=== PATIENT | female | born 1975 | race Caucasian/White ===

== ENCOUNTER 2022-01-31 19:53 | Emergency (ER) | payer BC ==
--- OUTSIDE RECORDS SUMMARY | 2022-01-31 20:01 | XMS REPORT | Continuity of Care Document ---
:1975 Author Organization [facility] t Address [address] [place] [address] Care Team Providers Name Role Phone Tammy Ochoa Primary Care Physician Tammy Ochoa Attending Clinician Unavailable JONATAN MYERS Attending Clinician Unavailable Jonatan Myers MD Attending Clinician ALONDRA WRIGHT Attending Clinician Unavailable Melvin Norris MD Attending Clinician Alondra Wright MD Attending Clinician Shannan Ramirez Attending Clinician SHANNAN GRANADOS Attending Clinician Unavailable CHILO FORBES Attending Clinician Unavailable KARLEY BELTRAN Attending Clinician Unavailable DR YAYO HAWK Attending Clinician Unavailable CHILO FORBES Admitting Clinician Unavailable DR YAYO HAWK Admitting Clinician Unavailable Payers Payer Name Policy Type Policy Number Effective Date Expiration Date S jazzmine BCBS FED [id number] 2011 [employer] 00:00:00 [employer] 6 [id number] 2011 [facility] Blue Shield of 00:00:00 [facility] Problems Condition Condition Condition Status Onset Resolution Last Treating Co mments Source Name Details Category Date Date Treatment Clinician Date Thyromegal Thyromegal Disease Active U nivers y y 6-19 ity of 00:00: [place] 00 Medical Branch Abnormal Abnormal Disease Active Unive rs thyroid thyroid 09-21 [place]y of blood [place] [facility] [place] [id number] Body mass Problem Com mon index [facility] [BMI] - [facility] 40.0-44.9, [facility] [id number] Morbid Problem Commo n 9104 (severe) Spirit obesity - [facility] due to [facility] [id number] Encounter Problem Com mon for [facility] gynecologi - [facility] without abnormal findings [id number] Cigarette Problem Comm on nicotine [facility] dependence - [facility] [id number] Reactive Problem Commo n depression [facility] [id number] Herpes Problem Common simplex [facility] vulvovagin - [facility] itis [facility] [id number] Seasonal Problem Comm on allergies [facility] [id number] Essential Problem Comm on hypertensi Spirit on [facility] [id number] Thyroid Problem Commo n nodule [facility] [id number] PMDD Problem Common (premenstr Spirit ual - [facility] [id number] Gastroesop Problem Co mmon hageal Spirit reflux - [facility] disease [facility] esophagiti [facility] [id number] Hot Problem Common flushes, Spirit perimenopa - [facility] [id number] Perimenopa Problem C ommon [id number] [facility] Allergies, Adverse Reactions, Alerts Allergy Allergy Status Severity Reaction(s) Onset Inactive Treating Comm ents Source Name Type Date Date Clinician PENICILL Drug Active Anaphylaxis Uni vers INS Class 6-19 ity of 00:00: Medical Branch Penicill Propensi Active Hives Univer s ins ty to 6-19 ity of adverse 00:00: [place] reaction Medical Branch Penicill Propensi Active Hives Univer s ins ty to 6-19 ity of adverse 00:00: [place] reaction Medical s [place] 0 Drug Active cant breath Commo n allergy throat Spirit closes and - [facility] Penicill DA Active Unknown Anaphylaxis Oa kbend [facility] Social History Social Habit Start Date Stop Date Quantity Comments Source History of Current Smoker [facility] - Tobacco Use [facility] Sex Assigned At [facility] - [facility] Exposure to 2022-01-20 2022-01-30 Not sure University of SARS-CoV-2 00:00:00 22:41:00 [facility] (event) Branch Tobacco use and 2021-04-04 2021-04-04 Smokeless tobacco Un iversity of exposure 00:00:00 00:00:00 non-user [facility] Alcohol intake 2021-04-04 2021-04-04 Current drinker Unive rsity of 00:00:00 00:00:00 of alcohol [facility] (finding) Branch Smoking Status Start Date Stop Date Source Current Smoker 2022-01-05 00:00:00 [facility] Spiri t - [facility] Medications Ordered Filled Start Stop Current Ordering Indication Dosage Frequency Signature Comments Components Source Medication Medication Date Date Medication? Clinician (SIG) Name Name cloNIDine 2021-04- No .2mg 0.2 mg, Univ ers (CATAPRES) 01-31 Oral, ity of tablet 0.2 04:45: 04:47 ONCE, 1 Bryce as mg 00 :00 dose, On Medical Fri Branch 01/30/22 at 2345, STAT valACYclovi valACYclovi No 1{table QD valACYclov r HCl 1 GM r HCl 1 GM 1-17 t} ir HCl 1 00:00: GM 00 doxycycline 2020-04- No [id number] 100mg Take 1 Univers hyclate 100 04-12 tablet by it y of mg tablet 00:00: 05:59 [place] 2 [place] (two) Medical times Branch daily for 7 days. metoprolol 2020-04 Yes 100mg Take 100 Un kim tartrate 2-20 mg by ity of 100 mg 00:00: mouth 2 [place] tablet 00 (two) Medical times Branch daily with meals. metoprolol 2020-04 Yes 100mg Take 100 Un kim tartrate 2-20 mg by ity of 100 mg 00:00: mouth 2 [place] tablet 00 (two) Medical times Branch daily with meals. metoprolol 2020-04 Yes 100mg Take 100 Un kim tartrate 2-20 mg by ity of 100 mg 00:00: mouth 2 [place] tablet 00 (two) Medical times Branch daily with meals. valsartan-h 2020-04 Yes 1{tbl} Take 1 Un kim ydrochlorot 1-19 tablet by ity of hiazide 00:00: mouth [place] 320-25 mg 00 daily. Medical per tablet Branch valsartan-h 2020-04 Yes 1{tbl} Take 1 Un kim ydrochlorot 1-19 tablet by ity of hiazide 00:00: mouth [place] 320-25 mg 00 daily. Medical per tablet Branch valsartan-h 2020-04 Yes 1{tbl} Take 1 Un kim ydrochlorot 1-19 tablet by ity of hiazide 00:00: mouth [place] 320-25 mg 00 daily. Medical per tablet Branch Omeprazole Omeprazole No QD Omeprazole 40 MG 40 MG 3-22 40 MG 00:00: 00 Omeprazole Omeprazole 0 No QD Omeprazole 40 MG 40 MG 3-22 40 MG 00:00: 00 Omeprazole Omeprazole 0 No QD Omeprazole 40 MG 40 MG 3-22 40 MG 00:00: 00 Valtrex Valtrex 2020-0 2020- No Minna 1 tablet Common 5-18 05-28 [place] [facility] 00:00: 00:00 - [facility] 00 :00 [facility] Zestoretic Zestoretic 2017- Yes Minna 1 tablet Common 1-08 [facility] 00:00: - [facility] 00 [facility] Metoprolol Metoprolol Yes Minna 1 tablet Common Tartrate Tartrate [place] with food S pirit [facility] Vitamin E Vitamin E Yes Minna 1 capsule Common [facility] Vitamin B Vitamin B Yes Minna as Com mon Complex Complex Cruz directed Spir it [facility] Vitamin C Vitamin C Yes Minna as Com mon [place] directed [facility] Vitamin E Vitamin E No 1{capsu QD Vitamin E 1000 UNIT 1000 UNIT le} 1000 UNIT Valsartan-h Valsartan-h No 1{table QD Valsartan- ydroCHLOROt ydroCHLOROt t} hydroCHLOR hiazide hiazide Othiazide 320-25 MG 320-25 MG 320-25 MG Vitamin B Vitamin B No Vitamin B Complex - Complex - Complex - Metoprolol Metoprolol No 1{table BID Metoprolol Tartrate Tartrate t_with_ Tartrate 100 MG 100 MG food} 100 MG Omeprazole Omeprazole No QD Omeprazole 40 MG 40 MG 40 MG Vitamin E Vitamin E No 1{capsu QD Vitamin E 1000 UNIT 1000 UNIT le} 1000 UNIT Zinc 30 MG Zinc 30 MG No 1{table QD Zinc 30 MG t} valACYclovi valACYclovi No 1{table QD valACYclov r HCl 1 GM r HCl 1 GM t} ir HCl 1 GM Vitamin D3 Vitamin D3 No 2{capsu QD Vitamin D3 50 MCG 50 MCG les} 50 MCG (1999) (1999) (1999) Vitamin C Vitamin C No Vitamin C 500 MG 500 MG 500 MG Omeprazole Omeprazole No QD Omeprazole 40 MG 40 MG 40 MG valACYclovi valACYclovi No 1{table QD valACYclov r HCl 1 GM r HCl 1 GM t} ir HCl 1 GM Vitamin E Vitamin E No 1{capsu QD Vitamin E 1000 UNIT 1000 UNIT le} 1000 UNIT Vitamin B Vitamin B No Vitamin B Complex - Complex - Complex - Zinc 30 MG Zinc 30 MG No 1{table QD Zinc 30 MG t} Valsartan-h Valsartan-h No 1{table QD Valsartan- ydroCHLOROt ydroCHLOROt t} hydroCHLOR hiazide hiazide Othiazide 320-25 MG 320-25 MG 320-25 MG Metoprolol Metoprolol No Metoprolol Tartrate Tartrate Tartrate 100 MG 100 MG 100 MG Vitamin C Vitamin C No Vitamin C 500 MG 500 MG 500 MG Vitamin D3 Vitamin D3 No 2{capsu QD Vitamin D3 50 MCG 50 MCG les} 50 MCG (1999) (1999) (1999) Vitamin C Vitamin C No Vitamin C 500 MG 500 MG 500 MG Vitamin E Vitamin E No 1{capsu QD Vitamin E 1000 UNIT 1000 UNIT le} 1000 UNIT Valsartan-h Valsartan-h No 1{table QD Valsartan- ydroCHLOROt ydroCHLOROt t} hydroCHLOR hiazide hiazide Othiazide 320-25 MG 320-25 MG 320-25 MG Metoprolol Metoprolol No Metoprolol Tartrate Tartrate Tartrate 100 MG 100 MG 100 MG Zinc 30 MG Zinc 30 MG No 1{table QD Zinc 30 MG t} Vitamin B Vitamin B No Vitamin B Complex - Complex - Complex - Omeprazole Omeprazole No QD Omeprazole 40 MG 40 MG 40 MG valACYclovi valACYclovi No 1{table QD valACYclov r HCl 1 GM r HCl 1 GM t} ir HCl 1 GM Vitamin D3 Vitamin D3 No 2{capsu QD Vitamin D3 50 MCG 50 MCG les} 50 MCG (1999) (1999) (1999) Vitamin C Vitamin C No Vitamin C 500 MG 500 MG 500 MG Vitamin E Vitamin E No 1{capsu QD Vitamin E 1000 UNIT 1000 UNIT le} 1000 UNIT Metoprolol Metoprolol No 1{table BID Metoprolol Tartrate Tartrate t_with_ Tartrate 100 MG 100 MG food} 100 MG Valsartan-h Valsartan-h No Valsartan- ydroCHLOROt ydroCHLOROt hydroCHLOR hiazide hiazide Othiazide 320-25 MG 320-25 MG 320-25 MG Zinc 30 MG Zinc 30 MG No 1{table QD Zinc 30 MG t} Vitamin B Vitamin B No Vitamin B Complex - Complex - Complex - Omeprazole Omeprazole No QD Omeprazole 40 MG 40 MG 40 MG valACYclovi valACYclovi No 1{table QD valACYclov r HCl 1 GM r HCl 1 GM t} ir HCl 1 GM Vitamin D3 Vitamin D3 No 2{capsu QD Vitamin D3 50 MCG 50 MCG les} 50 MCG (1999) (1999) (1999) Vitamin E Vitamin E No 1{capsu QD Vitamin E 1000 UNIT 1000 UNIT le} 1000 UNIT Omeprazole Omeprazole No QD Omeprazole 40 MG 40 MG 40 MG valACYclovi valACYclovi No 1{table QD valACYclov r HCl 1 GM r HCl 1 GM t} ir HCl 1 GM Valsartan-h Valsartan-h No Valsartan- ydroCHLOROt ydroCHLOROt hydroCHLOR hiazide hiazide Othiazide 320-25 MG 320-25 MG 320-25 MG Vitamin C Vitamin C No Vitamin C 500 MG 500 MG 500 MG Zinc 30 MG Zinc 30 MG No 1{table QD Zinc 30 MG t} Vitamin D3 Vitamin D3 No 2{capsu QD Vitamin D3 50 MCG 50 MCG les} 50 MCG (1999) (1999) (1999) Metoprolol Metoprolol No 1{table BID Metoprolol Tartrate Tartrate t_with_ Tartrate 100 MG 100 MG food} 100 MG Vitamin B Vitamin B No Vitamin B Complex - Complex - Complex - Vitamin C Vitamin C No Vitamin C 500 MG 500 MG 500 MG Vitamin E Vitamin E No 1{capsu QD Vitamin E 1000 UNIT 1000 UNIT le} 1000 UNIT Metoprolol Metoprolol No 1{table BID Metoprolol Tartrate Tartrate t_with_ Tartrate 100 MG 100 MG food} 100 MG Valsartan-h Valsartan-h No Valsartan- ydroCHLOROt ydroCHLOROt hydroCHLOR hiazide hiazide Othiazide 320-25 MG 320-25 MG 320-25 MG Zinc 30 MG Zinc 30 MG No 1{table QD Zinc 30 MG t} Vitamin B Vitamin B No Vitamin B Complex - Complex - Complex - Omeprazole Omeprazole No QD Omeprazole 40 MG 40 MG 40 MG valACYclovi valACYclovi No 1{table QD valACYclov r HCl 1 GM r HCl 1 GM t} ir HCl 1 GM Vitamin D3 Vitamin D3 No 2{capsu QD Vitamin D3 50 MCG 50 MCG les} 50 MCG (1999) (1999) (1999 [place]) Zinc 30 MG Zinc 30 MG No 1{table QD Zinc 30 MG t} Vitamin E Vitamin E No 1{capsu QD Vitamin E 1000 UNIT 1000 UNIT le} 1000 UNIT Vitamin C Vitamin C No Vitamin C 500 MG 500 MG 500 MG Vitamin D3 Vitamin D3 No 2{capsu QD Vitamin D3 50 MCG 50 MCG les} 50 MCG (1999) (1999) (1999 [place]) Metoprolol Metoprolol No 1{table BID Metoprolol Tartrate Tartrate t_with_ Tartrate 100 MG 100 MG food} 100 MG Valsartan-h Valsartan-h No 1{table QD Valsartan- ydroCHLOROt ydroCHLOROt t} hydroCHLOR hiazide hiazide Othiazide 320-25 MG 320-25 MG 320-25 MG Vitamin B Vitamin B No Vitamin B Complex - Complex - Complex - Zinc 30 MG Zinc 30 MG No 1{table QD Zinc 30 MG t} Valsartan-h Valsartan-h No 1{table QD Valsartan- ydroCHLOROt ydroCHLOROt t} hydroCHLOR hiazide hiazide Othiazide 320-25 MG 320-25 MG 320-25 MG Vitamin D3 Vitamin D3 No 2{capsu QD Vitamin D3 50 MCG 50 MCG les} 50 MCG (1999) (1999) (1999) Vitamin C Vitamin C No Vitamin C 500 MG 500 MG 500 MG Metoprolol Metoprolol No 1{table BID Metoprolol Tartrate Tartrate t_with_ Tartrate 100 MG 100 MG food} 100 MG Vitamin E Vitamin E No 1{capsu QD Vitamin E 1000 UNIT 1000 UNIT le} 1000 UNIT Vitamin B Vitamin B No Vitamin B Complex - Complex - Complex - Zinc 30 MG Zinc 30 MG No 1{table QD Zinc 30 MG t} Vitamin C Vitamin C No Vitamin C 500 MG 500 MG 500 MG Valsartan-h Valsartan-h No 1{table QD Valsartan- ydroCHLOROt ydroCHLOROt t} hydroCHLOR hiazide hiazide Othiazide 320-25 MG 320-25 MG 320-25 MG Vitamin D3 Vitamin D3 No 2{capsu QD Vitamin D3 50 MCG 50 MCG les} 50 MCG (1999) (1999) (1999) Vitamin B Vitamin B No Vitamin B Complex - Complex - Complex - Metoprolol Metoprolol No 1{table BID Metoprolol Tartrate Tartrate t_with_ Tartrate 100 MG 100 MG food} 100 MG Immunizations Ordered Immunization Filled Immunization Date Status Commen ts Source Name Name Fluzone Fluzone 2021-02-21 Completed [facility] 14:07:00 - [facility] Fluzone Fluzone 2021-02-21 Completed [facility] 14:07:00 [facility] Fluzone Fluzone 2021-02-21 Completed [facility] 14:07:00 [facility] Fluzone Fluzone 2021-02-21 Completed [facility] 14:07:00 [facility] Fluzone Fluzone 2021-02-21 Completed [facility] 14:07:00 - [facility] Fluzone Fluzone 2021-02-21 Completed [facility] 14:07:00 [facility] Fluzone Fluzone 2021-02-21 Completed [facility] 14:07:00 [facility] Moderna COVID-19 Moderna COVID-19 2020-12-05 Completed [facility] Vaccine Vaccine 10:24:00 - [facility] Moderna COVID-19 Moderna COVID-19 2020-12-05 Completed [facility] Vaccine Vaccine 10:24:00 - [facility] Moderna COVID-19 Moderna COVID-19 2020-12-05 Completed Co [facility] Vaccine Vaccine 10:24:00 - [facility] Moderna COVID-19 Moderna COVID-19 2020-12-05 Completed Co [facility] Vaccine Vaccine 10:24:00 - [facility] Moderna COVID-19 Moderna COVID-19 2020-12-05 Completed [facility] Vaccine Vaccine 10:24:00 - [facility] Moderna COVID-19 Moderna COVID-19 2020-12-05 Completed [facility] Vaccine Vaccine 10:24:00 - [facility] Moderna COVID-19 Moderna COVID-19 2020-12-05 Completed [facility] Vaccine Vaccine 10:24:00 - [facility] Moderna COVID-19 Moderna COVID-19 2020-12-05 Completed Co [facility] Vaccine Vaccine 10:24:00 - [facility] Moderna COVID-19 Moderna COVID-19 2020-12-05 Completed Co [facility] Vaccine Vaccine 10:24:00 - [facility] Moderna COVID-19 Moderna COVID-19 2020-11-07 Completed Co [facility] Vaccine Vaccine 10:23:00 - [facility] Moderna COVID-19 Moderna COVID-19 2020-11-07 Completed Co [facility] Vaccine Vaccine 10:23:00 - [facility] Moderna COVID-19 Moderna COVID-19 2020-11-07 Completed Co [facility] Vaccine Vaccine 10:23:00 - [facility] Moderna COVID-19 Moderna COVID-19 2020-11-07 Completed Co [facility] Vaccine Vaccine 10:23:00 - [facility] Moderna COVID-19 Moderna COVID-19 2020-11-07 Completed Co [facility] Vaccine Vaccine 10:23:00 - [facility] Moderna COVID-19 Moderna COVID-19 2020-11-07 Completed Co [facility] Vaccine Vaccine 10:23:00 - [facility] Moderna COVID-19 Moderna COVID-19 2020-11-07 Completed Co [facility] Vaccine Vaccine 10:23:00 - [facility] Moderna COVID-19 Moderna COVID-19 2020-11-07 Completed Co [facility] Vaccine Vaccine 10:23:00 - [facility] Moderna COVID-19 Moderna COVID-19 2020-11-07 Completed Co mmon [facility] Vaccine Vaccine 10:23:00 - [facility] Vital Signs Vital Name Observation Time Observation Value Comments Source Systolic blood 2022-01-31 05:12:00 142 mm[Hg] Univer sity of pressure [facility] Diastolic blood 2022-01-31 05:12:00 71 mm[Hg] Unive rsity of pressure [facility] Heart rate 2022-01-31 05:12:00 85 /min [facility] ty [facility] Respiratory rate 2022-01-31 05:12:00 21 /min [facility] Oxygen saturation in 2022-01-31 05:12:00 96 /min University of Arterial blood by [facility] Pulse oximetry Branch Body temperature 2022-01-31 03:44:00 36.72 Viviana [facility] [place] [facility] height 2022-01-31 03:44:00 170.2 cm [facility] Body weight 2022-01-31 03:44:00 128.822 kg [facility] BMI 2022-01-31 03:44:00 44.48 kg/m2 [facility] Systolic blood 2022-01-30 06:19:00 165 mm[Hg] Univer sity of pressure [facility] Branch Diastolic blood 2022-01-30 06:19:00 100 mm[Hg] Unive rsity of pressure [facility] Branch Oxygen saturation in 2022-01-30 05:57:00 98 /min University of Arterial blood by [facility] [place] [facility] Pulse oximetry Branch Heart rate 2022-01-30 05:57:00 89 /min [facility] Respiratory rate 2022-01-30 04:56:00 21 /min [facility] Body temperature 2022-01-30 03:55:00 37.11 Viviana Univ [facility] Body height 2022-01-30 03:55:00 170.2 cm [facility] Body weight 2022-01-30 03:55:00 128.822 kg [facility] BMI 2022-01-30 03:55:00 44.48 kg/m2 [facility] height 2022-01-05 11:20:00 69 [in_i] Common [facility] weight 2022-01-05 11:20:00 284 [lb_av] [facility] temperature 2022-01-05 11:20:00 97.3 [degF] [facility] bmi 2022-01-05 11:20:00 41.93 kg/m2 [facility] oximetry 2022-01-05 11:20:00 98 % [facility] respiratory rate 2022-01-05 11:20:00 18 /min Comm on [facility] blood pressure 2022-01-05 11:20:00 138 mm[Hg] [facility] - systolic [facility] blood pressure 2022-01-05 11:20:00 80 mm[Hg] Common [facility] - diastolic [facility] height 2021-11-28 11:20:00 69 [in_i] Common [facility] weight 2021-11-28 11:20:00 274 [lb_av] [facility] temperature 2021-11-28 11:20:00 98.7 [degF] Common [facility] bmi 2021-11-28 11:20:00 40.46 kg/m2 Common [facility] blood pressure 2021-11-28 11:20:00 131 mm[Hg] [facility] - systolic [facility] blood pressure 2021-11-28 11:20:00 73 mm[Hg] [facility] - diastolic [facility] height 2021-08-18 13:00:00 69 [in_i] Common [facility] weight 2021-08-18 13:00:00 274 [lb_av] Common [facility] temperature 2021-08-18 13:00:00 95.7 [degF] Common [facility] bmi 2021-08-18 13:00:00 40.46 kg/m2 Common [facility] oximetry 2021-08-18 13:00:00 99 % Common [facility] respiratory rate 2021-08-18 13:00:00 16 /min Comm on [facility] blood pressure 2021-08-18 13:00:00 128 mm[Hg] Common [facility] - systolic [facility] blood pressure 2021-08-18 13:00:00 82 mm[Hg] Common [facility] - diastolic [facility] height 2021-05-19 14:00:00 69 [in_i] Common [facility] weight 2021-05-19 14:00:00 278.2 [lb_av] [facility] temperature 2021-05-19 14:00:00 97.1 [degF] Common [facility] bmi 2021-05-19 14:00:00 41.08 kg/m2 [facility] oximetry 2021-05-19 14:00:00 100 % [facility] respiratory rate 2021-05-19 14:00:00 16 /min Comm on [facility] blood pressure 2021-05-19 14:00:00 134 mm[Hg] Common [facility] - systolic [facility] blood pressure 2021-05-19 14:00:00 86 mm[Hg] Common [facility] - diastolic [facility] Systolic blood 2021-04-04 21:54:00 134 mm[Hg] Univer sity of pressure [facility] Diastolic blood 2021-04-04 21:54:00 80 mm[Hg] Unive rsity of pressure [facility] Heart rate 2021-04-04 21:54:00 87 /min Universi ty of [facility] Body temperature 2021-04-04 21:54:00 37.06 Viviana [facility] ersity [facility] Respiratory rate 2021-04-04 21:54:00 18 /min [facility] height 2021-04-04 21:54:00 171.5 cm Universi ty of [facility] Body weight 2021-04-04 21:54:00 126.009 kg Universi ty of [facility] BMI 2021-04-04 21:54:00 42.87 kg/m2 Universi ty [facility] Oxygen saturation in 2021-04-04 21:54:00 97 /min [facility] Arterial blood by [facility] Pulse oximetry Branch height 2021-02-21 11:00:00 69 [in_i] [facility] weight 2021-02-21 11:00:00 280 [lb_av] [facility] bmi 2021-02-21 11:00:00 41.34 kg/m2 [facility] height 2021-01-23 14:20:00 69 [in_i] [facility] weight 2021-01-23 14:20:00 280.4 [lb_av] [facility] temperature 2021-01-23 14:20:00 97.1 [degF] [facility] bmi 2021-01-23 14:20:00 41.4 kg/m2 [facility] oximetry 2021-01-23 14:20:00 97 % [facility] respiratory rate 2021-01-23 14:20:00 18 /min Comm on [facility] blood pressure 2021-01-23 14:20:00 128 mm[Hg] [facility] [place] systolic [facility] blood pressure 2021-01-23 14:20:00 72 mm[Hg] Common [facility] - diastolic [facility] Height 2020-01-19 04:15:00 172.72 CM Weight 2020-01-19 04:15:00 122.01 KG Height 2020-01-18 08:23:00 172.72 CM Weight 2020-01-18 08:23:00 123.37 KG Procedures Procedure Date / Time Performed Performing Clinician Liam porter CONSENT/REFUSAL FOR 2022-01-31 03:38:01 [facility] TREATMENT TROPONIN I 2022-01-30 04:41:00 Melvin Norris [facility] BASIC METABOLIC PANEL 2022-01-30 04:41:00 Melvin Norris [facility] (NA, K, CL, CO2, Medical Branch GLUCOSE, BUN, CREATININE, CA) CBC WITH DIFF 2022-01-30 04:41:00 Melvin Norris [facility] CONSENT/REFUSAL FOR 2022-01-30 03:47:39 Doctor Unassigned, [facility] AND Name Medical Branch TREATMENT EXCISION OF TIBIAL 2020-01-19 00:00:00 Jatin Short edical NERVE OPEN APPR Center Encounters Start End Encounter Admission Attending Care Care Encounter Source Date/Time Date/Time Type Type Clinicians Facility Department ID 2022-01-02 Outpatient [place], STLMLC STLMLC [id number] Common 09:16:00 Tammy [facility] 2021-11-26 Outpatient [place], STLMLC STLMLC [id number] Common 08:19:00 Tammy [facility] 2021-08-15 Outpatient [place], STLMLC STLMLC [id number] Common 07:32:00 Tammy [facility] 2021-05-15 Outpatient [place], STLMLC STLMLC [id number] Common 13:41:01 Tammy [facility] 2021-04-30 Outpatient [place], STLMLC STLMLC [id number] Common 12:42:14 Tammy [id number] [facility] 2021-04-30 Outpatient [place], STLMLC STLMLC [id number] Common 11:50:15 Tammy [id number] [facility] 2021-04-30 Outpatient [place], STLMLC STLMLC [id number] Common 11:45:30 Tammy [id number] [facility] 2021-04-30 Outpatient Gabriela STJUSTINA STLC [id number] Common 11:12:26 Tammy [address] [facility] 2022-01-30 2022-01-31 Emergency X MIRNA [facility] ERT [id number] Univers 22:38:00 00:31:00 JONATAN ellsworth [facility] 2022-01-30 2022-01-31 Emergency [facility] [id number] Univers 22:38:00 00:31:00 Jonatan CASTELLANOS [id number] ity [facility] [id number] [facility] [phone] [address] 2022-01-29 2022-01-30 Emergency [facility] [id number] Univers 22:58:00 01:37:00 ALONDRA ellsworth [facility] 2022-01-29 2022-01-30 Emergency Myrna Bird [facility] [id number] Univers 22:58:00 01:37:00 Alondra Wright [id number] ity [facility] [id number] [facility] [phone] [address] 2022-01-05 2022-01-05 PREV VISIT STLMLC STLC [id number] Common 00:00:00 00:00:00 EST AGE [facility] 40-64 - [facility] 2021-12-29 2021-12-29 (TEL) STLMLC STLMLC [id number] Co mmon 00:00:00 00:00:00 [facility] 2021-11-28 2021-11-28 OFFICE STLMLC STLMLC [id number] Co mmon 00:00:00 00:00:00 VISIT Spirit ESTAB PT - CHI LEVEL 4 [facility] 2021-08-18 2021-08-18 OFFICE STLMLC STLMLC [id number] Co mmon 00:00:00 00:00:00 VISIT Spirit ESTAB PT - [facility]I LEVEL 4 [facility] 2021-05-19 2021-05-19 OFFICE STLMLC STLMLC [id number] Co mmon 00:00:00 00:00:00 VISIT Spirit ESTAB PT - [facility]I LEVEL 4 [facility] 2021-04-21 2021-04-21 (TEL) STLMLC STLMLC [id number] Co mmon 00:00:00 00:00:00 [facility] 2021-04-13 2021-04-13 Outpatient R [facility] [id number] Univers 09:15:00 09:15:00 [facility] 2021-04-04 2021-04-04 [facility] [id number] Univers 15:40:00 16:00:00 Care Shannan Shuoren [employer] [id number] it y of [place] [id number] Bryce as TSERING?BLEA [phone] [address] MEDICAL OFFICE BUILDING 2021-04-04 2021-04-04 Outpatient R DARWIN [facility] [id number] Univers 15:40:00 15:40:00 [facility] 2021-02-21 2021-02-21 OFFICE STLMLC STLMLC [id number] Co mmon 00:00:00 00:00:00 VISIT EST Spir it PT LEVEL 3 - [facility] 2021-01-23 2021-01-23 OFFICE STLMLC STLMLC [id number] Co mmon 00:00:00 00:00:00 VISIT EST Spir it PT LEVEL 3 - [facility] 2020-12-25 2020-12-25 Outpatient STLMLC STLMLC [id number] Common 00:00:00 00:00:00 [facility] 2020-08-13 2020-08-13 Emergency X LEIDY [facility] ERT [id number] Univers 19:49:00 22:03:00 CHILO [facility] 2020-06-24 2020-06-24 Outpatient STLMLC STLMLC [id number] Common 00:00:00 00:00:00 [facility] 2020-06-03 2020-06-03 Outpatient Joy BETLRAN [facility] [id number] Univers 11:40:00 11:40:00 KARLEY ellsworth [facility] 2020-05-24 2020-05-24 Outpatient Joy BELTRAN [facility] [id number] Univers 10:20:00 10:20:00 KARLEY ellsworth [facility] 2020-01-19 2020-01-19 Outpatient Kishore HAWK [facility] [id number] [place] 04:10:00 06:45:00 [facility] 2019-12-26 2019-12-26 Outpatient STLMLC STLMLC [id number] Common 00:00:00 00:00:00 [facility] 2019-08-21 2019-08-21 Outpatient [facility] [id number] Common 15:40:00 15:40:00 t [facility] [address] [facility] 2019-06-20 2019-06-20 Outpatient [facility] [id number] Common 08:20:00 08:20:00 t [facility] [address] [facility] 2019-06-05 2019-06-05 Outpatient [facility] [id number] Common 08:18:00 08:18:00 t [facility] [address] [facility] 2018-12-13 2018-12-13 Outpatient [facility] [id number] Common 08:20:00 08:20:00 t [facility] [address] [facility] 2018-09-26 2018-09-26 Outpatient [facility] [id number] Common 14:00:00 14:00:[address] [facility] 2018-09-15 2018-09-15 Outpatient [facility] [id number] Common 08:40:00 08:40:[address] [facility] 2018-06-09 2018-06-09 Out[facility] [id number] Common 09:30:00 09:30:[address] [facility] 2018-06-02 2018-06-02 Outpatient [facility] [id number] Common 14:37:00 14:37:00 t [facility] [address] [facility] 2018-05-05 2018-05-05 [facility] [id number] Common 09:30:00 09:30:00 t [facility] [address] [facility] 2018-04-06 2018-04-06 [facility]patient [facility] [id number] Common 10:09:00 10:09:00 t [facility] 2018-03-31 2018-03-31 Outpatient [facility] [id number] Common 11:30:00 11:30:00 t [facility] [address] [facility] 2018-01-13 2018-01-13 Outpatient Venkat [facility] [id number] Common 10:00:00 10:00:00 t [facility] [address] [facility] Results Test Description Test Time Test Comments Results Result Comments Source URINE MONOCLONALFB 2020-01-19 05:01:00 Test Item Value Reference Range Interpretation Comme nts PREG UR (test code = PGU) NEGATIVE NEGATIVE
[2022-01-31 20:52] LABS: Absolute Lymphocytes (CBC) 2.5 K/uL (0.7-4.9); Hematocrit 39.5 % (36.0-45.0); Lymphocytes % 20.8 % (15.3-44.8); MCV 94.9 fL (80-100); MPV 8.7 fL (7.6-11.3); RBC Red Blood Cell Count 4.16 M/uL (3.86-4.86)
[2022-01-31 20:56] LABS: Protime INR 1.05
[2022-01-31 21:12] LABS: ALT/SGPT 26 U/L (12-78); AST/SGOT 14 U/L (15-37); Albumin 3.6 g/dL (3.4-5.0); Alkaline Phosphatase 78 U/L (45-117); BUN Blood Urea Nitrogen 10 mg/dL (7-18); Bicarbonate 29 mmol/L (21-32); Bilirubin Total 0.3 mg/dL (0.2-1.0); Glomerular Filtration Rate 87 ml/min (=/>90); Glucose Level 106 mg/dL (74-106); Magnesium 1.8 mg/dL (1.8-2.4); NT PRO-BNP 342 pg/mL (<125); Potassium 3.8 mmol/L (3.5-5.1); Protein, Total 7.2 g/dL (6.4-8.2); Sodium Level 128 mmol/L (136-145); Troponin High Sensitivity 5.3 pg/mL (<58.9)
--- NOTE | 2022-01-31 21:13 | RAD REPORT ---
EXAM DESCRIPTION: RAD - Chest Single View - 01/31/2022 8:33 pm CLINICAL HISTORY: CHEST PAIN COMPARISON: None TECHNIQUE: AP portable chest image was obtained 01/31/2022 8:33 pm . FINDINGS: Lungs are clear. Heart and vasculature are normal. No measurable pleural effusion and no p neumothorax. No acute bony abnormality seen. No acute aortic findings suspected. IMPRESSION: No acute cardiopulmonary process.
[2022-01-31 21:19] LABS: Bilirubin Direct < 0.1 mg/dL (0-0.2)
[2022-01-31 21:20] LABS: Urine Blood Negative (Negative); Urine Glucose Negative (Negative); Urine Protein Negative (Negative); Urine Specific Gravity <=1.005 (1.005-1.030); Urine pH 5.5 (5.0-7.0)
[2022-01-31] MEDS ORDERED: ASPIRIN 81 MG CHEWABLE TABLET ONE (22:29)
[2022-01-31] MEDS ORDERED: AMLODIPINE 10 MG TAB ONE (22:29)
--- NOTE | 2022-01-31 22:29 | RAD REPORT ---
EXAM DESCRIPTION: CT - Head Brain Wo Cont - 01/31/2022 10:11 pm CLINICAL HISTORY: elevated blood pressure, headache COMPARISON: No comparisons TECHNIQUE: Axial 5 mm thick images of the head were obtained without IV contrast. All CT scans are performed using dose optimization technique as appropriate and may include automated exposure control or mA/KV adjustment according to patient size. FINDINGS: No intracranial hemorrhage, mass, edema or shift of mid-line structures. No acute infarcti on changes seen. No abnormal extra-axial fluid collections. Ventricles are normal. Mastoid air cells and visualized portions of the paranasal sinuses are clear. No acute bony findings. IMPRESSION: Negative non-contrast CT head examination.
--- NOTE | 2022-02-01 00:59 | ER ---
Nurse's Notes [facility] Name: Pearl Reyna Age: 46 yrs Sex: Female : 1975 Arrival Date: 01/31/2022 Time: 19:55 Bed 11 Private MD: Tammy Ochoa Diagnosis: Hypertensive heart disease without heart failure;Chest pain, unspecified Presentation: 01/31 20:06 Chief complaint: Intermittent chest pain x 3 days, pain is worse after eating dinner. hb Also reports home BP 200/120. Coronavirus screen: At this time, the client does not indicate any symptoms associated with coronavirus-19. Ebola Screen: No symptoms or risks identified at this time. Initial Sepsis Screen: Does the patient meet any 2 criteria? No. Patient's initial sepsis screen is negative. Does the patient have a suspected source of infection? No. Patient's initial sepsis screen is negative. Risk Assessment: Do you want to hurt yourself or someone else? Patient reports no desire to harm self or others. Onset of symptoms was January 29, 2022. 20:06 Acuity: MARTINA 3 hb 20:06 Method Of Arrival: Ambulatory hb Triage Assessment: 20:07 General: Appears in no apparent distress. uncomfortable, Behavior is calm, cooperative. hb Pain: Pain currently is 2 out of 10 on a pain scale. at worst was 8 out of 10 on a pain scale. Neuro: Level of Consciousness is awake, alert, obeys commands, Oriented to person, place, time, situation. Cardiovascular: Reports chest pain, Patient's skin is warm and dry. Respiratory: Respiratory effort is even, unlabored, Respiratory pattern is regular, symmetrical. Historical: - Allergies: 20:08 No Known Allergies; hb - Home Meds: 20:08 Metoprolol Tartrate Oral [Active]; lisinopril-hydrochlorothiazide oral [Active]; hb - PMHx: 20:08 Hypertensive disorder; hb - Immunization history:: Adult Immunizations up to date. - Social history:: Smoking status: Patient reports the use of cigarette tobacco products, smokes one pack cigarettes per day. Screenin:41 Abuse screen: Denies threats or abuse. Denies injuries from another. Nutritional hb screening: No deficits noted. Tuberculosis screening: No symptoms or risk factors identified. Fall Risk None identified. Assessment: 20:30 General: SEE TRIAGE ASSESSMENT. hb 21:41 Reassessment: Patient appears in no apparent distress at this time. Patient and/or hb family updated on plan of care and expected duration. Pain level reassessed. Patient is alert, oriented x 3, equal unlabored respirations, skin warm/dry/pink. 22:33 Reassessment: Patient appears in no apparent distress at this time. Patient and/or hb family updated on plan of care and expected duration. Pain level reassessed. Patient is alert, oriented x 3, equal unlabored respirations, skin warm/dry/pink. 23:36 Reassessment: Patient appears in no apparent distress at this time. Patient and/or hb family updated on plan of care and expected duration. Pain level reassessed. Patient is alert, oriented x 3, equal unlabored respirations, skin warm/dry/pink. Vital Signs: 20:06 BP 159 / 94; Pulse 71; Resp 20; Temp 97.0; Pulse Ox 100% on R/A; Weight 128.82 kg; hb Height 5 ft. 7 in. (170.18 cm); Pain 2/10; 22:33 BP 156 / 81; Pulse 74; Resp 17; Pulse Ox 99% on R/A; hb 23:39 BP 141 / 75; Pulse 73; Resp 17; Pulse Ox 100% ; hb 20:06 Body Mass Index 44.48 (128.82 kg, 170.18 cm) hb ED Course: 19:55 Patient arrived in ED. am2 19:55 Tammy Ochoa FNP-C is Private Physician. am2 20:00 [facility] cp 20:00 Beata Cabrera MD is Attending Physician. cp 20:08 Triage completed. hb 20:08 Arm band placed on. hb 20:30 Patient has correct armband on for positive identification. Client placed on continuous hb cardiac and pulse oximetry monitoring. NIBP monitoring applied. 20:30 Patient maintains SpO2 saturation greater than 95% on room air. hb 20:35 XRAY Chest (1 view) In Process Unspecified. EDMS 20:41 Inserted saline lock: 20 gauge in right antecubital area, using aseptic technique. kr3 Blood collected. 20:47 Heather Graham RN is Primary Nurse. kr3 21:15 Basic Metabolic Panel Sent. hb 21:15 CBC with Diff Sent. hb 21:15 Troponin HS Sent. hb 22:12 CT Head Brain wo Cont In Process Unspecified. EDMS 02/01 00:04 Diet: Patient is NPO. mm9 00:04 Troponin HS Sent. mm9 00:56 US Abdomen Limited In Process Unspecified. EDMS 00:58 Bridger Russo MD is Referral Physician. cp Administered Medications: 01/31 22:33 Drug: Aspirin Chewable Tablet 324 mg Route: PO; hb 23:52 Follow up: Response: No adverse reaction hb 22:33 Drug: amLODIPine 10 mg Route: PO; hb 23:52 Follow up: Response: No adverse reaction hb Medication: 21:42 VIS not applicable for this client. hb Outcome: 02/01 00:59 Discharge ordered by MD. cp 01:15 Patient left the ED. cg Signatures: Dispatcher [employer] EDMS Matthew Restrepo PA PA cp Tita Soto RN RN Aniyah Camacho RN RN hb Fe Savage am2 Heather Graham RN RN kr3 Faye Cabrera mm9 Corrections: (The following items were deleted from the chart) 01/31 21:41 21:40 General: SEE TRIAGE ASSESSMENT. hb hb
--- NOTE | 2022-02-01 01:00 | EDPHYS ---
Physician Documentation [facility] Name: Pearl Reyna Age: 46 yrs Sex: Female : 1975 Arrival Date: 01/31/2022 Time: 19:55 Bed 11 Private MD: Tammy Ochoa ED Physician Beata Cabrera HPI: 01/31 21:10 This 46 yrs old Female presents to ER via Ambulatory with complaints of High Blood cp Pressure, Chest Tightness. 21:10 The patient or guardian reports chest pain that is located primarily in the anterior cp chest wall, left. 21:10 Onset: 3 day(s) ago, intermittent. cp 21:10 The patient has elevated blood pressure and discovered this at home, with a home cp device. Associated signs and symptoms: Pertinent negatives: abdominal pain, cough, diaphoresis, dizziness, headache, near syncope, shortness of breath, syncope, vomiting. The chest pain is described as sharp. Severity of symptoms: At its worst the blood pressure was 200 mm Hg. Patient reports history of HTN and takes prescribed metoprolol and lisinopril/HCTZ. Historical: - Allergies: 20:08 No Known Allergies; hb - Home Meds: 20:08 Metoprolol Tartrate Oral [Active]; lisinopril-hydrochlorothiazide oral [Active]; hb - PMHx: 20:08 Hypertensive disorder; hb - Immunization history:: Adult Immunizations up to date. - Social history:: Smoking status: Patient reports the use of cigarette tobacco products, smokes one pack cigarettes per day. ROS: 21:15 Constitutional: Negative for body aches, chills, fever, poor PO intake. cp 21:15 Cardiovascular: Positive for chest pain, Negative for edema, palpitations. cp 21:15 Eyes: Negative for injury, pain, redness, and discharge. cp 21:15 ENT: Negative for drainage from ear(s), ear pain, sore throat, difficulty swallowing, difficulty handling secretions. 21:15 Respiratory: Negative for cough, shortness of breath, wheezing. 21:15 Abdomen/GI: Negative for abdominal pain, vomiting, diarrhea, constipation. 21:15 : Negative for urinary symptoms. 21:15 Neuro: Negative for altered mental status, dizziness, headache, weakness. 21:15 All other systems are negative. Exam: 20:15 ECG was reviewed by the Attending Physician. cp 21:20 Constitutional: The patient appears in no acute distress, alert, awake, cp non-diaphoretic, non-toxic, well developed, well nourished, obese. 21:20 Head/Face: Normocephalic, atraumatic. cp 21:20 Eyes: Periorbital structures: appear normal, Conjunctiva: normal, no exudate, no injection, Sclera: no appreciated abnormality, Lids and lashes: appear normal, bilaterally. 21:20 ENT: External ear(s): are unremarkable, Nose: is normal, Mouth: Lips: moist, Oral mucosa: pink and intact, moist, Posterior pharynx: Airway: no evidence of obstruction, patent. 21:20 Neck: ROM/movement: is normal, is supple, without pain, no range of motions limitations. 21:20 Chest/axilla: Inspection: normal. 21:20 Cardiovascular: Rate: normal, Rhythm: regular, Edema: is not appreciated, JVD: is not appreciated. 21:20 Respiratory: the patient does not display signs of respiratory distress, Respirations: normal, no use of accessory muscles, no retractions, labored breathing, is not present, Breath sounds: are clear throughout, no decreased breath sounds, no stridor, no wheezing. 21:20 Abdomen/GI: Inspection: abdomen appears normal, Bowel sounds: active, all quadrants, Palpation: abdomen is soft and non-tender, in all quadrants. 21:20 Back: pain, is absent, ROM is normal. 21:20 Neuro: Orientation: to person, place \T\ time. Mentation: is normal, Cerebellar function: is grossly normal, Motor: moves all fours, strength is normal, Sensation: is normal. Vital Signs: 20:06 BP 159 / 94; Pulse 71; Resp 20; Temp 97.0; Pulse Ox 100% on R/A; Weight 128.82 kg; hb Height 5 ft. 7 in. (170.18 cm); Pain 2/10; 22:33 BP 156 / 81; Pulse 74; Resp 17; Pulse Ox 99% on R/A; hb 23:39 BP 141 / 75; Pulse 73; Resp 17; Pulse Ox 100% ; hb 20:06 Body Mass Index 44.48 (128.82 kg, 170.18 cm) hb MDM: 20:12 Patient medically screened. 02/01 00:55 Data reviewed: vital signs, nurses notes, lab test result(s), EKG, radiologic studies, cp CT scan, plain films, ultrasound. 00:55 The patient was given aspirin in the Emergency Department. Test interpretation: by ED cp physician or midlevel provider: ECG, plain radiologic studies. 00:59 Response to treatment: the patient's symptoms have markedly improved after treatment. cp 00:59 Special discussion: Based on the patient's history, exam, and Dx evaluation, there is cp no indication for emergent intervention or inpatient Tx. It is understood by the patient/guardian that if the Sx's persist or worsen they need to return immediately for re-evaluation. ED course: VSS. Initial and repeat EKG and troponin negative. Blood pressure improved. Will discharge to home to f/u with cardiology. 01/31 20:22 Order name: Basic Metabolic Panel; Complete Time: 22:22 tp1 01/31 22:22 Interpretation: Normal except: NA 128; CL 93; GFR 87. 01/31 20:22 Order name: CBC with Diff; Complete Time: 22:22 tp1 01/31 22:22 Interpretation: Normal except: WBC 12.10; NEUT A 8.5. 01/31 20:22 Order name: Troponin HS; Complete Time: 22:22 tp1 01/31 22:22 Interpretation: Troponin HS 5.3; Reviewed. 01/31 20:22 Order name: Basic Metabolic Panel 01/31 20:22 Order name: CBC with Diff 01/31 20:22 Order name: LFT's; Complete Time: 22:22 01/31 23:06 Interpretation: AST 14; GLOB 3.6; A/G 1.0. 01/31 20:22 Order name: XRAY Chest (1 view); Complete Time: 22:22 tp1 01/31 20:22 Order name: Magnesium; Complete Time: 22:22 01/31 20:22 Order name: NT PRO-BNP; Complete Time: 22:22 01/31 23:06 Interpretation: Abnormal: NT PRO-BNP 342. 01/31 20:22 Order name: PT-INR; Complete Time: 22:22 01/31 20:22 Order name: Troponin HS 01/31 21:20 Order name: Urine Dipstick-Ancillary; Complete Time: 22:22 EDMS 01/31 23:56 Order name: Troponin HS; Complete Time: 00:51 cp 02/01 00:51 Interpretation: Troponin HS 5.3; Reviewed. cp 01/31 20:09 Order name: EKG; Complete Time: 20:10 hb 01/31 20:09 Order name: EKG - Nurse/Tech; Complete Time: 20:09 hb 01/31 20:22 Order name: Cardiac monitoring; Complete Time: 20:22 tp1 01/31 20:22 Order name: IV Saline Lock; Complete Time: 20:41 tp1 01/31 20:22 Order name: Labs collected and sent; Complete Time: 20:41 tp1 01/31 20:22 Order name: O2 Per Protocol; Complete Time: 20:22 tp1 01/31 20:22 Order name: O2 Sat Monitoring; Complete Time: 20:22 tp1 01/31 20:22 Order name: Cardiac monitoring; Complete Time: 20:59 cp 01/31 20:22 Order name: IV Saline Lock; Complete Time: 20:40 cp 01/31 20:22 Order name: Labs collected and sent; Complete Time: 20:40 cp 01/31 20:22 Order name: O2 Per Protocol; Complete Time: 20:40 cp 01/31 20:22 Order name: O2 Sat Monitoring; Complete Time: 20:40 cp 01/31 21:09 Order name: CT Head Brain wo Cont; Complete Time: 22:50 cp 01/31 22:50 Interpretation: Report reviewed. cp 01/31 23:56 Order name: US Abdomen Limited cp 01/31 21:09 Order name: Urine Dipstick-Ancillary (obtain specimen); Complete Time: 21:20 cp 01/31 21:09 Order name: Urine Test (obtain specimen); Complete Time: 21:20 cp 01/31 23:56 Order name: NPO; Complete Time: 00:13 cp EC/29 20:15 Rate is 71 beats/min. Rhythm is regular. MN interval is normal. QRS interval is normal. cp QT interval is normal. T waves are Inverted in lead aVR. Interpreted by me. Reviewed by me. Administered Medications: 22:33 Drug: Aspirin Chewable Tablet 324 mg Route: PO; hb 23:52 Follow up: Response: No adverse reaction hb 22:33 Drug: amLODIPine 10 mg Route: PO; hb 23:52 Follow up: Response: No adverse reaction hb Disposition Summary: 02/01/22 00:59 Discharge Ordered Location: Home cp Problem: new cp Symptoms: have improved cp Condition: Stable cp Diagnosis - Hypertensive heart disease without heart failure cp - Chest pain, unspecified cp Followup: cp - With: Bridger Russo MD - When: 2 - 3 days - Reason: Recheck today's complaints Discharge Instructions: - Discharge Summary Sheet cp - Nonspecific Chest Pain, Adult cp - Hypertension, Adult cp - Aspirin and Your Heart cp - Form - Blood Pressure Record Sheet cp - How to Take Your Blood Pressure cp Forms: - Medication Reconciliation Form cp - Thank You Letter cp - Antibiotic Education cp - Prescription Opioid Use cp Prescriptions: - amlodipine 5 mg Oral tablet - take 1 tablet by ORAL route once daily; 30 tablet; Refills: 0, Product cp Selection Permitted Signatures: Dispatcher [employer] EDMS Matthew Restrepo PA PA cp Aniyah Camacho RN RN Darling Partida RN RN tp1 Corrections: (The following items were deleted from the chart) 20:34 20:23 Chest Single View+RAD.RAD.[email or web address] ordered. EDMS EDMS
[2022-02-01 01:49] VITALS: TEMP 97
[2022-02-01 01:52] VITALS: BP 141/75; O2SAT 100
--- NOTE | 2022-02-02 16:01 | EKG ---
Test Date: 2022-01-31 Test Time: 20:09:38 Assignment Officer: MEASUREMENT RESULTS: Intervals: Rate: 71 WY: 134 QRSD: 74 QT: 390 QTc: 423 [place]: P: 68 WY: 134 QRS: 67 T: 68 INTERPRETIVE STATEMENTS: Normal sinus rhythm Possible Left atrial enlargement Low voltage QRS ST abnormality, possible digitalis effect Abnormal ECG Compared to ECG 01/08/2020 12:23:14 Low QRS voltage now present ST (T wave) deviation now present Electronically Signed On 02-02-22 15:58:25 CDT by Darrius Tipton
--- NOTE | 2022-02-03 19:37 | RAD REPORT ---
EXAM DESCRIPTION: US - Abdomen Exam Limited - 02/01/2022 12:54 am CLINICAL HISTORY: EPIGASTRIC PAIN COMPARISON: None. TECHNIQUE: US ABDOMEN LIMITED 01/31/2022 11:56 PM CDT FINDINGS: Liver is normal in echotexture. Gallbladder is normally distended without wall thickening, gallstones or pericholecystic fluid. Common bile duct measures 3 mm. IMPRESSION: Normal gallbladder. Electronically signed by: Ugo Jeffery MD 02/01/2022 2:07 AM CDT Due to temporary technical issues with the PACS/Fluency reporting system, reports are being signed by the in house radiologists without review as a courtesy to insure prompt reporting. The interpreting radiologist is fully responsible for the content of the report.
== END 2022-02-01 01:15 | disposition home or self-care (01) ==
LOC: ER 19:53
DX: I11.9 Hypertensive heart disease without heart failure (principal); I10 Essential (primary) hypertension; F17.210 Nicotine dependence, cigarettes, uncomplicated
CPT/HCPCS: 36415; 70450; 71045; 76705; 80048; 80076; 81003; 83735; 83880; 84484; 85025; 85610; 93005; 99284

== ENCOUNTER 2022-03-02 22:22 | Emergency (ER) | payer BC ==
--- OUTSIDE RECORDS SUMMARY | 2022-03-02 22:36 | XMS REPORT | Continuity of Care Document ---
:1975 Author Organization [facility] t Address [address] [place] [address] Care Team Providers Name Role Phone TAMMY ACE Primary Care Physician Unavailable Tammy Ace Attending Clinician Unavailable JOSE ANTONIO PANDYA Attending Clinician Unavailable LASHELL SENDJANNET K.H. Attending Clinician Unavailable Emmanuel Lobo MD K.H. Attending Clinician Doctor Unassigned, Bryan Attending Clinician Unavailable JONATAN MYERS Attending Clinician Unavailable Jonatan Myesr MD Attending Clinician ALONDRA WRIGHT Attending Clinician [...] Date Expiration Date S jazzmine BCBS FED [id number] 2011 [employer] 00:00:00 [employer] 6 [id number] 2011 [facility] Blue Shield of 00:00:00 [facility] Problems Condition Condition Condition Status Onset Resolution Last Treating Co mments Source Name Details Category Date Date Treatment Clinician Date Depression Depression Disease Active 2021-04 U nivers 04-05 ity of 00:00: [place] [facility] Hypothyroi Hypothyroi Disease Active 2021-04 Overview : Univers d d 04-05 Formattin ity of 00:00: g of this note Medical might be Branch different from the original. At age 21 then stopped LT4 Hypertensi Hypertensi Disease Active 2021-04 U nivers on on 04-05 ity of 00:00: [place] [facility] Multiple Multiple Disease Active 2021-04 Unive rs thyroid thyroid 04-05 ity of nodules nodules 00:00: [place] [facility] Thyromegal Thyromegal Disease Active U nivers y y 09-21 ity of 00:00: [place] [facility] Branch Abnormal Abnormal Disease Active Unive rs thyroid thyroid 09-21 ity of blood test [place] [facility] [id number] Body mass Problem Com mon index Spirit [BMI] - CHI 40.0-44.9, [facility] [id number] Morbid Problem Commo n 9104 (severe) Spirit obesity - [facility]I due to [facility] [id number] Encounter Problem Com mon for Spirit gynecologi - [facility] sasha [facility] (routine) without abnormal findings [id number] Cigarette Problem Comm on nicotine [facility] dependence - [facility] [id number] Reactive Problem Commo n depression Spirit - [facility] [id number] Herpes Problem Common simplex Spirit vulvovagin - CHI itis [facility] [id number] Seasonal Problem Comm on allergies Spirit - CHI [facility] [id number] Essential Problem Comm on hypertensi Spirit on - CHI [facility] [id number] Thyroid Problem Commo n nodule [facility] [id number] PMDD Problem Common (premenstr Spirit ual - CHI dysphoric St disorder) [facility] [id number] Gastroesop Problem Co mmon hageal Spirit reflux - CHI disease [facility] esophagiti Medica l [place] [id number] Hot Problem Common flushes, Spirit perimenopa - CHI usal [facility] [id number] Perimenopa Problem C ommon [address] [facility] Allergies, Adverse Reactions, Alerts Allergy Allergy Status Severity Reaction(s) Onset Inactive Treating Comm ents Source Name Type Date Date Clinician PENICILL Drug Active Anaphylaxis Uni vers INS Class 6-19 ity of 00:00: [place] 00 [facility] Penicill Propensi Active Hives Univer s ins ty to 619 ity of adverse 00:00: [place] reaction 00 Medical s Branch Penicill Propensi Active Hives Univer s ins ty to 6-19 ity of adverse 00:00: [place] reaction 00 Medical s Branch 0 Drug Active cant breath Commo n allergy throat [facility] closes and - [facility] nifedipi nifedipi Active throat Common ne ne closing [facility] Penicill DA Active Unknown Anaphylaxis Oa kbend [facility] Social History Social Habit Start Date Stop Date Quantity Comments Source Sex Assigned At [facility] tung - [facility] Exposure to 2022-02-20 2022-03-02 Not sure University SARS-CoV-2 00:00:00 13:42:00 [facility] (event) Branch Alcohol intake 2022-03-02 2022-03-02 Current drinker Unive rsity of 00:00:00 00:00:00 of alcohol [facility] (finding) Branch Tobacco Comment 2022-02-03 2022-02-03 Smoked a pack a Univ ersity of 00:00:00 00:00:00 day from age 12 [place] [facility] to 46 Branch Alcohol Comment 2022-02-03 2022-02-03 Used to drink Univer sity of 00:00:00 00:00:00 6-12 12 oz beers [facility] dical per night, does Branch not currently drink Tobacco use and 2022-02-03 2022-02-03 Smokeless tobacco Un iversity of exposure 00:00:00 00:00:00 non-user [facility] History of 1987-09-18 2022-02-02 Cigarette Smoker Universi ty of tobacco use 00:00:00 00:00:00 [facility] Smoking Status Start Date Stop Date Source Current Smoker 2022-02-16 00:00:00 [facility] t - [facility] Ex-smoker 2022-02-03 00:00:00 2022-02-03 00:00:00 [facility] Medical Branch Medications Ordered Filled Start Stop Current Ordering Indication Dosage Frequency Signature Comments Components Source Medication Medication Date Date Medication? Clinician (SIG) Name Name fatmata 2021-04- No 1{tbl} Take 1 U nivers ydrochlorot 04-05 tablet by it y of hiazide 08:44: 00:00 mouth in [place] 320-25 mg 08 :00 the Medical per tablet morning. Bran h valrtan-h 2021-04- No 1{tbl} Take 1 U nivers ydrochlorot 04-05 tablet by it y of hiazide 08:44: 00:00 mouth in [place] 320-25 mg 08 :00 the Medical per tablet morning. Bran h NIFEdipine 2021-04- Yes as Univer s XL 30 mg 24 0-31 -31 directed ity of hr tablet 00:00: 05:59 [place] 00 :00 Medical Branch NIFEdipine 2021-04- Yes as Univer s XL 30 mg 24 0-31 12-31 directed ity of hr tablet 00:00: 05:59 [place] 00 :00 Medical Branch NIFEdipine 2021-04- Yes as Univer s XL 30 mg 24 0-31 -31 directed ity of hr tablet 00:00: 05:59 [place] 00 :00 Medical Branch Nifedipine Nifedipine 2021-04- No QD Nifedipine ER 30 mg ER 30 mg 0-31 12-30 ER 30 mg 00:00: 00:00 00 :00 Nifedipine Nifedipine 2021-04- No QD Nifedipine ER 30 mg ER 30 mg 0-31 12-30 ER 30 mg 00:00: 00:00 00 :00 Nifedipine Nifedipine 2021-04- No QD Nifedipine ER 30 mg ER 30 mg 0-31 12-30 ER 30 mg 00:00: 00:00 00 :00 Nifedipine Nifedipine 2021-04- No QD Nifedipine ER 30 mg ER 30 mg 0-31 12-30 ER 30 mg 00:00: 00:00 00 :00 NIFEdipine 2021-04- No as Univer s XL 30 mg 24 0-03-02 directed ity of hr tablet 00:00: 00:00 [place] 00 :00 Medical Branch NIFEdipine 2021-04- No as Univer s XL 30 mg 24 03-02 directed ity of hr tablet 00:00: 00:00 [place] 00 :00 Medical Branch cloNIDine 2021-04- No .2mg 0.2 mg, Univ ers (CATAPRES) 0-31 01- Oral, ity of tablet 0.2 04:45: 04:47 ONCE, 1 Bryce as mg 00 :00 dose, On Medical Fri Branch 01/30/22 at 2345, STAT valACYclovi valACYclovi No 1{table QD valACYclov r HCl 1 GM r HCl 1 GM 1-17 t} ir HCl 1 00:00: GM 00 doxycycline 2020-04- No [id number] 100mg Take 1 Univers hyclate 100 04-12 [...] Medical per tablet Branch valsartan-h 2020-04 Yes .5{tbl} Take 0.5 Univers ydrochlorot 1-19 tablets by it y of hiazide 00:00: mouth in [place] 320-25 mg 00 the Medical per tablet morning. [facility] valsartan-h 2020-04 Yes .5{tbl} Take 0.5 Univers ydrochlorot 1-19 tablets by it y of hiazide 00:00: mouth in [place] 320-25 mg 00 the Medical per tablet morning. [facility] valsartan-h 2020-04 Yes 1{tbl} Take 1 Un [...] 3-22 40 MG 00:00: 00 Omeprazole Omeprazole No QD Omeprazole 40 MG 40 MG 3-22 40 MG 00:00: 00 Omeprazole Omeprazole 0 No QD Omeprazole 40 MG 40 MG 3-22 40 MG 00:00: 00 Valtrex Valtrex 2019-0 2020- No Minna 1 tablet Common 08-20- [place] [facility] 00:00: 00:00 - CHI 00 :00 [facility] Zestoretic Zestoretic 2017- Yes Minna 1 tablet Common 04-12 [facility] 00:00: - CHI 00 [facility] Metoprolol Metoprolol Yes Minna 1 tablet Common Tartrate Tartrate [facility] E Vitamin E Yes Minna 1 capsule Common [facility] Vitamin B Vitamin B Yes Minna as Com mon Complex Complex Cruz directed Spir it [facility] Vitamin C Vitamin C Yes Minna as Com mon [facility] directed [facility] Vitamin E Vitamin E No 1{capsu [...] 50 MCG les} 50 MCG (1999) (1999) (2000 [place]) Vitamin C Vitamin C No Vitamin C [...] les} 50 MCG (1999) (1999) (1999 [place]) Vitamin C Vitamin C No Vitamin C [...] MCG 50 MCG les} 50 MCG (1999) (1999 [place]) (1999 [place]) Vitamin C Vitamin C No Vitamin C [...] No 1{table QD Zinc 30 MG t} Omeprazole Omeprazole No QD Omeprazole 40 MG 40 MG 40 MG Vitamin C Vitamin C No Vitamin C 500 MG 500 MG 500 MG valACYclovi valACYclovi No 1{table QD valACYclov [...] Complex - Complex - Complex - Vitamin D3 Vitamin D3 No 2{capsu QD Vitamin D3 50 MCG 50 MCG les} 50 MCG (1999) (1999) (1999) Valsartan-h Valsartan-h No Valsartan- ydroCHLOROt ydroCHLOROt hydroCHLOR hiazide hiazide Othiazide 320-25 MG 320-25 MG 320-25 MG Zinc 30 MG Zinc 30 MG No 1{table QD Zinc 30 MG t} Omeprazole Omeprazole No QD Omeprazole 40 MG 40 MG 40 MG Vitamin C Vitamin C No Vitamin C 500 MG 500 MG 500 MG valACYclovi valACYclovi No 1{table QD valACYclov [...] Complex - Complex - Complex - Vitamin D3 Vitamin D3 No 2{capsu QD Vitamin D3 50 MCG 50 MCG les} 50 MCG (1999) (1999) (1999 [place]) Valsartan-h Valsartan-h No Valsartan- ydroCHLOROt ydroCHLOROt hydroCHLOR hiazide hiazide Othiazide 320-25 MG 320-25 MG 320-25 MG Zinc 30 MG Zinc 30 MG No 1{table QD Zinc 30 MG t} Omeprazole Omeprazole No QD Omeprazole 40 MG 40 MG 40 MG Vitamin C Vitamin C No Vitamin C 500 MG 500 MG 500 MG valACYclovi valACYclovi No 1{table QD valACYclov [...] Complex - Complex - Complex - Vitamin D3 Vitamin D3 No 2{capsu QD Vitamin D3 50 MCG 50 MCG les} 50 MCG (1999) (1999) (1999 [place]) Valsartan-h Valsartan-h No Valsartan- ydroCHLOROt ydroCHLOROt hydroCHLOR hiazide hiazide Othiazide 320-25 MG 320-25 MG 320-25 MG Vitamin C Vitamin C No Vitamin C 500 MG 500 MG 500 MG valACYclovi valACYclovi No 1{table QD valACYclov r HCl 1 GM r HCl 1 GM t} ir HCl 1 GM Valsartan-h Valsartan-h No Valsartan- ydroCHLOROt ydroCHLOROt hydroCHLOR hiazide hiazide Othiazide 320-25 MG 320-25 MG 320-25 MG Vitamin B Vitamin B No Vitamin B Complex - Complex - Complex - Zinc 30 MG Zinc 30 MG No 1{table QD Zinc 30 MG t} Metoprolol Metoprolol No 1{table BID Metoprolol Tartrate Tartrate t_with_ Tartrate 100 MG 100 MG food} 100 MG Omeprazole Omeprazole No QD Omeprazole 40 MG 40 MG 40 MG Vitamin D3 Vitamin D3 No 2{capsu [...] 100 MG food} 100 MG Immunizations Ordered Filled Immunization Date Status Comments Sour e Immunization Name Name Influenza Virus 2022-01-06 Completed Universit y of Vaccine 00:00:00 [facility] Influenza Virus 2022-01-06 Completed Universit y of Vaccine 00:00:00 [facility] Influenza Virus 2022-01-06 Completed Universit y of Vaccine 00:00:00 [facility] Influenza Virus 2022-01-06 Completed Universit y of Vaccine 00:00:00 [facility] Influenza Virus 2022-01-06 Completed Universit y of Vaccine 00:00:00 [facility] Fluzone Fluzone 2021-02-21 Completed [facility] - 14:07:00 [facility] Fluzone Fluzone 2021-02-21 Completed [facility] - 14:07:00 [facility] Fluzone Fluzone 2021-02-21 Completed [facility] - 14:07:00 [facility] Fluzone Fluzone 2021-02-21 Completed [facility] - 14:07:00 [facility] Fluzone Fluzone 2021-02-21 Completed [facility] - 14:07:00 [facility] Fluzone Fluzone 2021-02-21 Completed [facility] - 14:07:00 [facility] Fluzone Fluzone 2021-02-21 Completed [facility] - 14:07:00 [facility] Fluzone Fluzone 2021-02-21 Completed [facility] - 14:07:00 [facility] Fluzone Fluzone 2021-02-21 Completed [facility] - 14:07:00 [facility] Fluzone Fluzone 2021-02-21 Completed [facility] - 14:07:00 [facility] Fluzone Fluzone 2021-02-21 Completed [facility] - 14:07:00 [facility] Moderna COVID-19 Moderna COVID-19 2020-12-05 Completed Co mmon [facility] - Vaccine Vaccine 10:24:00 [facility] Moderna COVID-19 Moderna COVID-19 2020-12-05 Completed Co mmon [facility] - Vaccine Vaccine 10:24:00 [facility] Moderna COVID-19 Moderna COVID-19 2020-12-05 Completed Co mmon [facility] - Vaccine Vaccine 10:24:00 [facility] Moderna COVID-19 Moderna COVID-19 2020-12-05 Completed Co mmon [facility] - Vaccine Vaccine 10:24:00 [facility] Moderna COVID-19 Moderna COVID-19 2020-12-05 Completed Co mmon [facility] - Vaccine Vaccine 10:24:00 [facility] Moderna COVID-19 Moderna COVID-19 2020-12-05 Completed Co mmon [facility] - Vaccine Vaccine 10:24:00 [facility] Moderna COVID-19 Moderna COVID-19 2020-12-05 Completed Co mmon [facility] - Vaccine Vaccine 10:24:00 [facility] Moderna COVID-19 Moderna COVID-19 2020-12-05 Completed Co mmon [facility] - Vaccine Vaccine 10:24:00 [facility] Moderna COVID-19 Moderna COVID-19 2020-12-05 Completed Co mmon [facility] - Vaccine Vaccine 10:24:00 [facility] Moderna COVID-19 Moderna COVID-19 2020-12-05 Completed Co mmon [facility] - Vaccine Vaccine 10:24:00 [facility] Moderna COVID-19 Moderna COVID-19 2020-12-05 Completed Co mmon Spirit - Vaccine Vaccine 10:24:00 [facility] Moderna COVID-19 Moderna COVID-19 2020-12-05 Completed Co mmon Spirit - Vaccine Vaccine 10:24:00 [facility] Moderna COVID-19 Moderna COVID-19 2020-12-05 Completed Co mmon [facility] - Vaccine Vaccine 10:24:00 [facility] SARS-COV-2 COVID-19 2020-12-05 Completed Unive rsity of MODERNA 12+ YRS 00:00:00 [place] [facility] VACCINE Branch SARS-COV-2 COVID-19 2020-12-05 Completed Unive rsity of MODERNA 12+ YRS 00:00:00 [place] [facility] VACCINE Branch SARS-COV-2 COVID-19 2020-12-05 Completed Unive rsity of MODERNA 12+ YRS 00:00:00 [facility] ical VACCINE Branch SARS-COV-2 COVID-19 2020-12-05 Completed Unive rsity of MODERNA 12+ YRS 00:00:00 [facility] ical VACCINE Branch SARS-COV-2 COVID-19 2020-12-05 Completed Unive rsity of MODERNA 12+ YRS 00:00:00 [facility] VACCINE Branch Moderna COVID-19 Moderna COVID-19 2020-11-07 Completed Co mmon [facility] - Vaccine Vaccine 10:23:00 [facility] Moderna COVID-19 Moderna COVID-19 2020-11-07 Completed Co mmon [facility] - Vaccine Vaccine 10:23:00 [facility] Moderna COVID-19 Moderna COVID-19 2020-11-07 Completed Co mmon [facility] - Vaccine Vaccine 10:23:00 [facility] Moderna COVID-19 Moderna COVID-19 2020-11-07 Completed Co mmon [facility] - Vaccine Vaccine 10:23:00 [facility] Moderna COVID-19 Moderna COVID-19 2020-11-07 Completed Co mmon [facility] - Vaccine Vaccine 10:23:00 [facility] Moderna COVID-19 Moderna COVID-19 2020-11-07 Completed Co mmon [facility] - Vaccine Vaccine 10:23:00 [facility] Moderna COVID-19 Moderna COVID-19 2020-11-07 Completed Co mmon [facility] - Vaccine Vaccine 10:23:00 [facility] Moderna COVID-19 Moderna COVID-19 2020-11-07 Completed Co mmon [facility] - Vaccine Vaccine 10:23:00 [facility] Moderna COVID-19 Moderna COVID-19 2020-11-07 Completed Co mmon [facility] - Vaccine Vaccine 10:23:00 [facility] Moderna COVID-19 Moderna COVID-19 2020-11-07 Completed Co mmon [facility] - Vaccine Vaccine 10:23:00 [facility] Moderna COVID-19 Moderna COVID-19 2020-11-07 Completed Co mmon [facility] - Vaccine Vaccine 10:23:00 [facility] Moderna COVID-19 Moderna COVID-19 2020-11-07 Completed Co mmon [facility] - Vaccine Vaccine 10:23:00 [facility] Moderna COVID-19 Moderna COVID-19 2020-11-07 Completed Co mmon [facility] - Vaccine Vaccine 10:23:00 [facility] SARS-COV-2 COVID-19 2020-11-07 Completed Unive rsity of MODERNA 12+ YRS 00:00:00 [place] [facility] VACCINE Branch SARS-COV-2 COVID-19 2020-11-07 Completed Unive rsity of MODERNA 12+ YRS 00:00:00 [place] [facility] VACCINE Branch SARS-COV-2 COVID-19 2020-11-07 Completed Unive rsity of MODERNA 12+ YRS 00:00:00 [place] [facility] VACCINE Branch SARS-COV-2 COVID-19 2020-11-07 Completed Unive rsity of MODERNA 12+ YRS 00:00:00 [place] [facility] VACCINE Branch SARS-COV-2 COVID-19 2020-11-07 Completed Unive rsity of MODERNA 12+ YRS 00:00:00 [facility] ical VACCINE Branch Vital Signs Vital Name Observation Time Observation Value Comments Source Systolic blood 2022-03-02 20:14:00 137 mm[Hg] Univer sity of pressure [facility] Diastolic blood 2022-03-02 20:14:00 81 mm[Hg] Unive rsity of pressure [facility] Heart rate 2022-03-02 20:14:00 73 /min [facility] Respiratory rate 2022-03-02 20:14:00 20 /min [facility] Body height 2022-03-02 20:14:00 170.2 cm [facility] Body weight 2022-03-02 20:14:00 126.599 kg [facility] BMI 2022-03-02 20:14:00 43.71 kg/m2 [facility] Oxygen saturation in 2022-03-02 20:14:00 98 /min [facility] blood by [facility] Pulse oximetry Branch height 2022-02-16 13:20:00 69 [in_i] [facility] weight 2022-02-16 13:20:00 279.4 [lb_av] [facility] temperature 2022-02-16 13:20:00 97.6 [degF] [facility] bmi 2022-02-16 13:20:00 41.26 kg/m2 Common [facility] oximetry 2022-02-16 13:20:00 98 % Common [facility] respiratory rate 2022-02-16 13:20:00 17 /min Comm on [facility] blood pressure 2022-02-16 13:20:00 131 mm[Hg] Common [facility] - systolic [facility] blood pressure 2022-02-16 13:20:00 81 mm[Hg] Common [facility] - diastolic [facility] Systolic blood 2022-02-03 13:22:00 140 mm[Hg] Univer sity of [facility] Diastolic blood 2022-02-03 13:22:00 78 mm[Hg] Unive rsity of [facility] Heart rate 2022-02-03 13:16:00 95 /min [facility] Body height 2022-02-03 13:16:00 171.5 cm [facility] Body weight 2022-02-03 13:16:00 127.914 kg [facility] BMI 2022-02-03 13:16:00 43.52 kg/m2 [facility] Oxygen saturation in 2022-02-03 13:16:00 100 /min [facility] Arterial blood by [facility] Pulse oximetry Branch height 2022-02-02 13:20:00 69 [in_i] [facility] weight 2022-02-02 13:20:00 282.9 [lb_av] Common [facility] temperature 2022-02-02 13:20:00 98.1 [degF] Common [facility] bmi 2022-02-02 13:20:00 41.77 kg/m2 Common [facility] oximetry 2022-02-02 13:20:00 98 % Common [facility] respiratory rate 2022-02-02 13:20:00 18 /min Comm on [facility] blood pressure 2022-02-02 13:20:00 158 mm[Hg] [facility] - systolic [facility] blood pressure 2022-02-02 13:20:00 92 mm[Hg] [facility] - diastolic [facility] Systolic blood 2022-01-31 05:12:00 142 mm[Hg] Univer sity of pressure [place] [facility] Diastolic blood 2022-01-31 05:12:00 71 mm[Hg] Unive rsity of pressure [place] [facility] Heart rate 2022-01-31 05:12:00 85 /min Universi ty of [place] [facility] Respiratory rate 2022-01-31 05:12:00 21 /min Univ ersity of [place] [facility] Oxygen saturation in 2022-01-31 05:12:00 96 /min University of Arterial blood by [place] [employer] [facility]asha Pulse oximetry Branch Body temperature 2022-01-31 03:44:00 36.72 Viviana Univ ersity of [place] [facility] Body height 2022-01-31 03:44:00 170.2 cm Universi ty of [place] [facility] Body weight 2022-01-31 03:44:00 128.822 kg Universi ty [facility] [place] [facility] BMI 2022-01-31 03:44:00 44.48 kg/m2 Universi ty of [place] [facility] Systolic blood 2022-01-30 06:19:00 165 mm[Hg] Univer sity of pressure [place] [facility] Diastolic blood 2022-01-30 06:19:00 100 mm[Hg] Unive rsity of pressure [place] [facility] Oxygen saturation in 2022-01-30 05:57:00 98 /min University of Arterial blood by [place] [employer] sasha Pulse oximetry Branch Heart rate 2022-01-30 05:57:00 89 /min Universi ty of [place] [facility] Respiratory rate 2022-01-30 04:56:00 21 /min Univ ersity of [place] [facility] Body temperature 2022-01-30 03:55:00 37.11 Viviana Univ ersity of [place] [facility] Body height 2022-01-30 03:55:00 170.2 cm Universi ty [facility] [place] [facility] Body weight 2022-01-30 03:55:00 128.822 kg [facility]i [facility] [place] [facility] BMI 2022-01-30 03:55:00 44.48 kg/m2 [facility]i ty [facility] [place] [facility] height 2022-01-05 11:20:00 69 [in_i] Common S pirit [facility] weight 2022-01-05 11:20:00 284 [lb_av] Common S pirit [facility] temperature 2022-01-05 11:20:00 97.3 [degF] Common S pirit [facility] bmi 2022-01-05 11:20:00 41.93 kg/m2 Common S pirit [facility] oximetry 2022-01-05 11:20:00 98 % [facility] respiratory rate 2022-01-05 11:20:00 18 /min Comm on Spirit - [facility] blood pressure 2022-01-05 11:20:00 138 mm[Hg] Common [facility] - systolic [facility] blood pressure 2022-01-05 11:20:00 80 mm[Hg] [facility] - diastolic [facility] height 2021-11-28 11:20:00 69 [in_i] [facility] weight 2021-11-28 11:20:00 274 [lb_av] Common S pirit [facility] temperature 2021-11-28 11:20:00 98.7 [degF] [facility] bmi 2021-11-28 11:20:00 40.46 kg/m2 Common S pirit [facility] blood pressure 2021-11-28 11:20:00 131 mm[Hg] [facility] - systolic [facility] blood pressure 2021-11-28 11:20:00 73 mm[Hg] [facility] - diastolic [facility] height 2021-08-18 13:00:00 69 [in_i] [facility] weight 2021-08-18 13:00:00 274 [lb_av] Common S pirit [facility] temperature 2021-08-18 13:00:00 95.7 [degF] Common S pirit [facility] bmi 2021-08-18 13:00:00 40.46 kg/m2 Common S [facility] oximetry 2021-08-18 13:00:00 99 % Common [facility] respiratory rate 2021-08-18 13:00:00 16 /min Comm on [facility] blood pressure 2021-08-18 13:00:00 128 mm[Hg] Common [facility] - systolic [facility] blood pressure 2021-08-18 13:00:00 82 mm[Hg] Common [facility] - diastolic [facility] height 2021-05-19 14:00:00 69 [in_i] Common [facility] weight 2021-05-19 14:00:00 278.2 [lb_av] [facility] temperature 2021-05-19 14:00:00 97.1 [degF] Common [facility] bmi 2021-05-19 14:00:00 41.08 kg/m2 Common [facility] oximetry 2021-05-19 14:00:00 100 % Common [facility] respiratory rate 2021-05-19 14:00:00 16 /min Comm on [facility] blood pressure 2021-05-19 14:00:00 134 mm[Hg] Common [facility] - systolic [facility] blood pressure 2021-05-19 14:00:00 86 mm[Hg] Common [facility] - diastolic [facility] Systolic blood 2021-04-04 21:54:00 134 mm[Hg] [facility] Diastolic blood 2021-04-04 21:54:00 80 mm[Hg] [facility] Heart rate 2021-04-04 21:54:00 87 /min [facility] Body temperature 2021-04-04 21:54:00 37.06 [facility] rate 2021-04-04 21:54:00 18 /min [facility] Body height 2021-04-04 21:54:00 171.5 cm [facility] Body weight 2021-04-04 21:54:00 126.009 kg [facility] BMI 2021-04-04 21:54:00 42.87 kg/m2 [facility] Oxygen saturation in 2021-04-04 21:54:00 97 /min [facility] blood by [facility] Pulse oximetry Branch height 2021-02-21 11:00:00 69 [in_i] [facility] weight 2021-02-21 11:00:00 280 [lb_av] [facility] bmi 2021-02-21 11:00:00 41.34 kg/m2 [facility] height 2021-01-23 14:20:00 69 [in_i] [facility] weight 2021-01-23 14:20:00 280.4 [lb_av] [facility] temperature 2021-01-23 14:20:00 97.1 [degF] [facility] bmi 2021-01-23 14:20:00 41.4 kg/m2 [facility] oximetry 2021-01-23 14:20:00 97 % [facility] respiratory rate 2021-01-23 14:20:00 18 /min Comm on [facility] blood pressure 2021-01-23 14:20:00 128 mm[Hg] [facility] - systolic [facility] blood pressure 2021-01-23 14:20:00 72 mm[Hg] [facility] - diastolic [facility] Height 2020-01-19 04:15:00 172.72 CM Weight 2020-01-19 04:15:00 122.01 KG Height 2020-01-18 08:23:00 172.72 CM Weight 2020-01-18 08:23:00 123.37 KG Procedures Procedure Date / Time Performed Performing Clinician [facility] e ASSIGNMENT OF BENEFITS 2022-03-02 19:44:06 Doctor Unassigned, No [facility] Medical Branch CONSENT/REFUSAL FOR 2022-01-31 03:38:01 Doctor Unassigned, No [facility] DIAGNOSIS AND Name Medical Branch TREATMENT TROPONIN I 2022-01-30 04:41:00 Melvin Norris [facility] BASIC METABOLIC PANEL 2022-01-30 04:41:00 Melvin Norris [facility] (NA, K, CL, CO2, Medical Branch GLUCOSE, BUN, CREATININE, CA) CBC WITH DIFF 2022-01-30 04:41:00 Melvin Norris [facility] CONSENT/REFUSAL FOR 2022-01-30 03:47:39 Doctor Unassigned, No [facility] DIAGNOSIS AND Name Medical Branch TREATMENT EXCISION OF TIBIAL 2020-01-19 00:00:00 Jatin Short edical NERVE OPEN APPR Center Encounters Start End Encounter Admission Attending Care Care Encounter Source Date/Time Date/Time Type Type Clinicians Facility Department ID 2022-02-12 [place] STLMLC STLMLC [id number] Common 14:16:00 Tammy [facility] 2022-01-02 [place], STLMLC STLMLC [id number] Common 09:16:00 Tammy [id number] [facility] 2021-11-26 [place], STLMLC STLMLC [id number] Common 08:19:00 Tammy [facility] 2021-08-15 [place], STLMLC STLMLC [id number] Common 07:32:00 Tammy [facility] 2021-05-15 Outpatient [place], STLMLC STLMLC [id number] Common 13:41:01 Tammy [facility] 2021-04-30 Outpatient [place], STLMLC STLMLC [id number] Common 12:42:14 Tammy [id number] [facility] 2021-04-30 Outpatient [place], STLMLC STLMLC [id number] Common 11:50:15 Tammy [id number] [facility] 2021-04-30 Outpatient [place], STLMLC STLMLC [id number] Common 11:45:30 Tammy [id number] [facility] 2021-04-30 Outpatient Gabriela, STLMLC STLC [id number] Common 11:12:26 Tammy [id number] Spirit - [facility] 2022-03-02 2022-03-02 Outpatient Joy LOBO [facility] [id number] Univers 14:00:00 14:35:20 SENDIL ity of [facility] 2022-03-02 2022-03-02 Office Lashell [facility] [id number] Univers 14:00:00 14:35:20 Visit Emmanuel CASTELLANOS [id number] ity [id number] [id number] [place] ALF 059 [facility] 2022-03-02 2022-03-02 Orders Doctor HUMBERTO [id number] Univers 00:00:00 00:00:00 Only Unassigned, [place] [id number] ity of [facility] [id number] Bryce as [id number] [address] 2022-02-16 2022-02-16 OFFICE STLMLC STLMLC [id number] Co mmon 00:00:00 00:00:00 VISIT EST Spir it PT LEVEL 3 - [facility] 2022-02-03 2022-02-03 Outpatient Joy PANDYA [facility] [id number] Univers 08:00:00 09:00:10 JOSE ANTONIO ity [facility] 2022-02-03 2022-02-03 Office [facility] [id number] Univers 08:00:00 09:00:10 Visit [facility] [id number] ity of [place] [id number] Bryce as TSERING?BLEA [phone] [place] dical EY [address] [place] [address] OFFICE BUILDING 2022-02-02 2022-02-02 OFFICE STLMLC STLMLC [id number] Co mmon 00:00:00 00:00:00 VISIT EST Spir it PT LEVEL 3 - [facility] 2022-02-02 2022-02-02 (TEL) STLMLC STLMLC [id number] Co mmon 00:00:00 00:00:00 [facility] 2022-01-30 2022-01-31 Emergency X [facility] ERT [id number] Univers 22:38:00 00:31:00 JONATAN [facility] 2022-01-30 2022-01-31 Emergency Louis [facility] [id number] Univers 22:38:00 00:31:00 Jonatan No [place] [id number] ity [facility] [id number] [facility] [phone] [address] 2022-01-31 2022-01-31 (TEL) STLMLC STLMLC [id number] Co mmon 00:00:00 00:00:00 [facility] 2022-01-29 2022-01-30 Emergency X ADRIANA [facility] ERT [id number] Univers 22:58:00 01:37:00 [facility] 2022-01-29 2022-01-30 Emergency Melvin Norris [facility] [id number] Univers 22:58:00 01:37:00 Alondra Wright [place] [id number] ity [facility] [id number] [facility] [id number] [address] 2022-01-05 2022-01-05 PREV VISIT STLMLC STLMLC [id number] Common 00:00:00 00:00:00 EST AGE Adam 40-64 - [facility] 2021-12-29 2021-12-29 (TEL) STLMLC STLMLC [id number] Co mmon 00:00:00 00:00:00 [facility] 2021-11-28 2021-11-28 OFFICE STLMLC STLMLC [id number] Co mmon 00:00:00 00:00:00 VISIT Spirit ESTAB PT - CHI LEVEL 4 [facility] 2021-08-18 2021-08-18 OFFICE STLMLC STLMLC [id number] Co mmon 00:00:00 00:00:00 VISIT Spirit ESTAB PT - CHI LEVEL 4 [facility] 2021-05-19 2021-05-19 OFFICE STLMLC STLMLC [id number] Co mmon 00:00:00 00:00:00 VISIT Spirit ESTAB PT - CHI LEVEL 4 [facility] 2021-04-21 2021-04-21 (TEL) STLMLC STLMLC [id number] Co mmon 00:00:00 00:00:00 [facility] 2021-04-13 2021-04-13 Outpatient R [facility] [id number] Univers 09:15:00 09:15:00 [facility] 2021-04-04 2021-04-04 [facility]gent [facility] [id number] Univers 15:40:00 16:00:00 [facility] [id number] it y of [place] [id number] Bryce as TSERING?BLEA [id number] [address] MEDICAL OFFICE BUILDING 2021-04-04 2021-04-04 Outpatient R DARWIN [facility] [id number] Univers 15:40:00 15:40:00 [facility] 2021-02-21 2021-02-21 OFFICE STLMLC STLMLC [id number] Co mmon 00:00:00 00:00:00 VISIT EST Spir it PT LEVEL 3 - [facility] 2021-01-23 2021-01-23 OFFICE STLMLC STLMLC [id number] Co mmon 00:00:00 00:00:00 VISIT EST Spir it PT LEVEL 3 - [facility] 2020-12-25 2020-12-25 Outpatient STLMLC STLMLC [id number] Common 00:00:00 00:00:00 [facility] 2020-08-13 2020-08-13 Emergency X LEIDY [facility] ERT [id number] Univers 19:49:00 22:03:00 CHILO [facility] 2020-06-24 2020-06-24 Outpatient STLMLC STLMLC [id number] Common 00:00:00 00:00:00 [facility] 2020-06-03 2020-06-03 Outpatient Joy BELTRAN [facility] [id number] Univers 11:40:00 11:40:00 KARLEY ellsworth [facility] 2020-05-24 2020-05-24 Outpatient Joy BELTRAN [facility] [id number] Univers 10:20:00 10:20:00 KARLEY ellsworth [facility] 2020-01-19 2020-01-19 Outpatient Kishore HAWK [facility] [id number] [place] 04:10:00 06:45:00 [facility] 2019-12-26 2019-12-26 Outpatient STLMLC STLMLC [id number] Common 00:00:00 00:00:00 [facility] 2019-08-21 2019-08-21 [facility] [id number] Common 15:40:00 15:40:00 t [facility] [address] [facility] 2019-06-20 2019-06-20 Outpatient [facility] [id number] Common 08:20:00 08:20:[address] [facility] [address] [facility] 2019-06-05 2019-06-05 [facility] [id number] Common 08:18:00 08:18:[address] [facility] [address] [facility] 2018-12-13 2018-12-13 Out[facility] [id number] Common 08:20:00 08:20:[address] [facility] [address] [facility] 2018-09-26 2018-09-26 [facility] [id number] Common 14:00:00 14:00:[address] [facility] [address] [facility] 2018-09-15 2018-09-15 [facility] [id number] Common 08:40:00 08:40:[address] [facility] [address] [facility] 2018-06-09 2018-06-09 [facility] [id number] Common 09:30:00 09:30:[address] [facility] [address] [facility] 2018-06-02 2018-06-02 [id number] Common 14:37:00 14:37:[address] [facility] [address] [facility] 2018-05-05 2018-05-05 [facility] [id number] Common 09:30:00 09:30:[address] [facility] [address] [facility] 2018-04-06 2018-04-06 [facility] [id number] Common 10:09:00 10:09:00 t [facility] 2018-03-31 2018-03-31 [facility]patient [id number] Common 11:30:00 11:30:[address] [facility] [address] [facility] 2018-01-13 2018-01-13 Outpatient [facility] [id number] Common 10:00:00 10:00:00 t [facility] [address] [facility] Results Test Description Test Time Test Comments Results Result Comments Source URINE MONOCLONALFB 2020-01-19 05:01:00 Test Item Value Reference Range Interpretation Comme nts PREG UR (test code = PGU) NEGATIVE NEGATIVE
[2022-03-03 01:00] LABS: Hematocrit 38.4 % (36.0-45.0); MCV 93.3 fL (80-100); MPV 8.6 fL (7.6-11.3); RBC Red Blood Cell Count 4.12 M/uL (3.86-4.86)
[2022-03-03 01:10] LABS: Albumin 3.5 g/dL (3.4-5.0); Bilirubin Direct 0.1 mg/dL (0-0.2); Bilirubin Total 0.3 mg/dL (0.2-1.0); Magnesium 2.1 mg/dL (1.8-2.4); Troponin High Sensitivity 6.3 pg/mL (<58.9)
[2022-03-03] MEDS ORDERED: POTASSIUM 25 MEQ EFFERV TAB ONE (01:31)
[2022-03-03] MEDS ORDERED: NA CHLORIDE 0.9% 500 ML ONE (01:32)
--- NOTE | 2022-03-03 02:27 | EDPHYS ---
Physician Documentation [facility] Name: Pearl Reyna Age: 46 yrs Sex: Female : 1975 Arrival Date: 03/02/2022 Time: 22:24 Bed 17 Private MD: Linda Ochoa ED Physician Zhen Teixeira HPI: 03/02 23:20 This 46 yrs old Female presents to ER via Ambulatory with complaints of Dizziness, High cp Blood Pressure, Headache. 23:20 The patient presents with lightheadedness, nausea, headache. cp 23:20 Onset: The symptoms/episode began/occurred suddenly, today. Context: occurred while the cp patient was watching TV. 23:20 Context: just prior to the episode the patient experienced no apparent symptoms. cp Associated signs and symptoms: Pertinent negatives: abdominal pain, chest pain, confusion, focal weakness, palpitations, seizure, syncope, vomiting. Severity of symptoms: in the emergency department the symptoms have improved markedly. Patient's baseline: Neuro: alert and fully oriented, Motor: no deficits, Ambulation: walks without assistance, Speech: normal. 23:20 Patient reports she checked her blood pressure and it was elevated at 178/116. 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 - Social history:: Smoking status: Patient/guardian denies using tobacco, Stopped _ months ago 1. ROS: 23:25 Constitutional: Negative for body aches, chills, fever, poor PO intake. cp 23:25 Eyes: Negative for injury, pain, redness, and discharge. cp 23:25 ENT: Negative for drainage from ear(s), ear pain, sore throat, difficulty swallowing, difficulty handling secretions. 23:25 Neck: Negative for pain with movement, pain at rest, stiffness. 23:25 Cardiovascular: Negative for chest pain, edema, palpitations. 23:25 Respiratory: Negative for cough, shortness of breath, wheezing. 23:25 Abdomen/GI: Positive for nausea, Negative for abdominal pain, vomiting, diarrhea, constipation. 23:25 : Negative for urinary symptoms. 23:25 Neuro: Positive for dizziness, headache, Negative for altered mental status, numbness, syncope, tingling, weakness. 23:25 All other systems are negative. Exam: 23:25 ECG was reviewed by the Attending Physician. cp 23:30 Constitutional: The patient appears in no acute distress, alert, awake, cp non-diaphoretic, non-toxic, well developed, well nourished, obese. 23:30 Head/Face: Normocephalic, atraumatic. cp 23:30 Eyes: Periorbital structures: appear normal, Pupils: equal, round, and reactive to light and accomodation, Extraocular movements: intact throughout, Conjunctiva: normal, no exudate, no injection, Sclera: no appreciated abnormality, Lids and lashes: appear normal, bilaterally. 23:30 ENT: External ear(s): are unremarkable, Nose: is normal, Mouth: Lips: moist, Oral mucosa: pink and intact, moist, Posterior pharynx: Airway: no evidence of obstruction, patent, swelling, is not appreciated, erythema, is not appreciated, exudate, is not appreciated. 23:30 Neck: ROM/movement: is normal, is supple, without pain, no range of motions limitations, no nuchal rigidity. 23:30 Chest/axilla: Inspection: normal. 23:30 Cardiovascular: Rate: normal, Rhythm: regular, Edema: is not appreciated, JVD: is not appreciated. 23:30 Respiratory: the patient does not display signs of respiratory distress, Respirations: normal, no use of accessory muscles, no retractions, labored breathing, is not present, Breath sounds: are clear throughout, no decreased breath sounds, no stridor, no wheezing. 23:30 Abdomen/GI: Exam negative for discomfort, distension, guarding, Inspection: abdomen appears normal. 23:30 Back: pain, is absent, ROM is normal. 23:30 Neuro: Orientation: to person, place \T\ time. Mentation: is normal, Cerebellar function: is grossly normal, Motor: moves all fours, strength is normal, Sensation: is normal. Vital Signs: 22:34 BP 153 / 96; Pulse 77; Resp 18; Temp 98.7; Pulse Ox 100% on R/A; Weight 127.01 kg; tw5 Height 5 ft. 7 in. (170.18 cm); Pain 0/10; 23:06 BP 144 / 84; Pulse 74; Resp 18; Pulse Ox 100% ; jj7 03/03 00:02 BP 144 / 75; Pulse 70; Resp 18; Pulse Ox 100% ; Pain 0/10; jj7 01:00 BP 141 / 85; Pulse 70; Resp 17; Pulse Ox 100% ; Pain 0/10; j7 02:10 BP 142 / 85; Pulse 73; Resp 17; Pulse Ox 100% ; j7 02:49 BP 139 / 73; Pulse 80; Resp 17; Pulse Ox 100% ; Pain 0/10; j7 03/02 22:34 Body Mass Index 43.85 (127.01 kg, 170.18 cm) tw5 MDM: 03/02 22:54 Patient medically screened. cp 03/03 00:00 Differential diagnosis: cardiac arrhythmia, CVA, generalized weakness, GI bleed, cp hypovolemia, idiopathic dizziness, , sepsis, TIA. 02:27 Data reviewed: vital signs, nurses notes, lab test result(s), EKG, radiologic studies, cp CT scan, plain films. 02:27 Test interpretation: by ED physician or midlevel provider: ECG, plain radiologic cp studies. Counseling: I had a detailed discussion with the patient and/or guardian regarding: the historical points, exam findings, and any diagnostic results supporting the discharge/admit diagnosis, the presence of at least one elevated blood pressure reading (>120/80) during this emergency department visit, lab results, radiology results, the need for outpatient follow up, a family practitioner, to return to the emergency department if symptoms worsen or persist or if there are any questions or concerns that arise at home. Response to treatment: the patient's symptoms have markedly improved after treatment, patient is well hydrated. and as a result, I will discharge patient. 03/02 23:15 Order name: Basic Metabolic Panel; Complete Time: 01:15 cp 03/03 01:15 Interpretation: Normal except: NA 131; K 3.0; CL 94; GLUC 114; GFR 79. cp 03/02 23:15 Order name: CBC with Diff; Complete Time: 01:15 cp 03/03 02:27 Interpretation: Normal except: WBC 12.50; NEUT A 9.1. 03/02 23:15 Order name: CT Head Brain wo Cont cp 03/02 23:15 Order name: LFT's; Complete Time: 01:15 03/03 02:27 Interpretation: Normal except: A/G 1.0. 03/02 23:15 Order name: Magnesium; Complete Time: 01:15 03/02 23:15 Order name: Troponin HS; Complete Time: 01:15 03/02 23:15 Order name: XRAY Chest (1 view) 03/02 23:15 Order name: EKG; Complete Time: 23:16 03/02 23:15 Order name: Cardiac monitoring; Complete Time: 00:01 03/02 23:15 Order name: EKG - Nurse/Tech; Complete Time: 00:01 03/02 23:15 Order name: IV Saline Lock; Complete Time: 00:36 03/02 23:15 Order name: Labs collected and sent; Complete Time: 00:01 03/02 23:15 Order name: O2 Per Protocol; Complete Time: 00:01 03/02 23:15 Order name: O2 Sat Monitoring; Complete Time: 00:01 03/03 00:12 Order name: Labs - recollect needed: all labs; Complete Time: 00:45 mw2 EC/28 23:25 Rate is 70 beats/min. Rhythm is regular. OH interval is normal. QRS interval is normal. cp QT interval is normal. T waves are Inverted in leads III, aVR. Interpreted by me. Reviewed by me. Administered Medications: 03/03 01:42 Drug: NS 0.9% 500 ml Route: IV; Rate: bolus; Site: left antecubital; jj7 02:34 Follow up: IV Status: Completed infusion 01:42 Drug: Potassium Effervescent Tablet 50 mEq Route: PO; 02:50 Follow up: Response: No adverse reaction Disposition: 06:27 Co-signature as Attending Physician, Zhen Teixeira MD I agree with the assessment and rt plan of care. Disposition Summary: 03/03/22 02:27 Discharge Ordered Location: Home cp Problem: new cp Symptoms: have improved cp Condition: Stable cp Diagnosis - Hypertensive heart disease without heart failure cp - Dizziness and giddiness cp - Headache cp - Hypokalemia cp Followup: cp - With: Private Physician - When: 2 - 3 days - Reason: Recheck today's complaints Discharge Instructions: - Discharge Summary Sheet cp - Dizziness cp - General Headache Without Cause cp - Aspirin and Your Heart cp - Hypokalemia cp - Form - Blood Pressure Record Sheet cp - How to Take Your Blood Pressure cp Forms: - Medication Reconciliation Form cp - Thank You Letter cp - Antibiotic Education cp - Prescription Opioid Use cp Signatures: Dispatcher [employer] EDMS Matthew Restrepo PA PA cp Ariel Caballero mw2 Fabian Castillofany tw5 Arslan Preciado RN RN jj7 Zhen Teixeira MD MD rt Corrections: (The following items were deleted from the chart) 03/02 22:38 22:37 Allergies: No Known Allergies; tw5 tw5 03/03 02:27 01:15 Normal except: WBC 12.50. cp cp 03/04 02:45 03/02 23:20 The patient presents with lightheadedness, cp cp 03/04 02:47 02:44 Context: just prior to the episode the patient experienced no apparent symptoms, cp cp 02:47 02:44 Associated signs and symptoms: Pertinent negatives: abdominal pain, chest pain, cp confusion, focal weakness, palpitations, seizure, syncope, vomiting, cp 02:47 02:44 Severity of symptoms: in the emergency department the symptoms have improved cp markedly, cp 02:47 02:44 Patient's baseline: Neuro: alert and fully oriented, Motor: no deficits, cp Ambulation: walks without assistance, Speech: normal, cp
--- NOTE | 2022-03-03 02:27 | ER ---
Nurse's Notes [facility] Name: Pearl Reyna Age: 46 yrs Sex: Female : 1975 Arrival Date: 03/02/2022 Time: 22:24 Bed 17 Private MD: Linda Ochoa Diagnosis: Hypertensive heart disease without heart failure;Dizziness and giddiness;Headache;Hypokalemia Presentation: 03/02 22:34 Chief complaint: Patient states: "We were just sitting there watching TV and all of tw5 sudden I start feeling really like headed and like I want to vomit. I took my blood pressure and it was 178/116 and my pulse was 83. It didn't seem right. I have not had an issue like this in over a month.". Coronavirus screen: Vaccine status: Patient reports receiving the 2nd dose of the covid vaccine. Moderna. Ebola Screen: Patient negative for fever greater than or equal to 101.5 degrees Fahrenheit, and additional compatible Ebola Virus Disease symptoms Patient denies exposure to infectious person. Patient denies travel to an Ebola-affected area in the 21 days before illness onset. Initial Sepsis Screen: Does the patient meet any 2 criteria? No. Patient's initial sepsis screen is negative. Does the patient have a suspected source of infection? No. Patient's initial sepsis screen is negative. Risk Assessment: Do you want to hurt yourself or someone else? Patient reports no desire to harm self or others. Onset of symptoms was March 02, 2022 at 22:00. 22:34 Method Of Arrival: Ambulatory tw5 22:34 Acuity: MARTINA 3 tw5 Triage Assessment: 22:37 Headache History: Other "My headache has done away.". General: Appears in no apparent tw5 distress. Behavior is calm, cooperative, appropriate for age. Pain: Pain currently is 0 out of 10 on a pain scale. Pain began suddenly, Also complains of nausea. Neuro: Rowan Agitation-Sedation Scale (RASS): 0 - Alert and Calm Level of Consciousness is awake, alert, obeys commands. EDITOR NEWS: 22:37 LMP N/A - Irregular menses tw5 Historical: - Allergies: 22:37 PENICILLINS; tw5 - Home Meds: 22:37 lisinopril-hydrochlorothiazide Oral [Active]; Metoprolol Tartrate Oral [Active]; tw5 - PMHx: 22:37 Hypertensive disorder; tw5 - PSHx: 22:37 None; tw5 - Immunization history:: Flu vaccine is up to date. - Social history:: Smoking status: Patient/guardian denies using tobacco, Stopped _ months ago 1. Screenin:57 Abuse screen: Denies threats or abuse. Nutritional screening: No deficits noted. jj7 Tuberculosis screening: No symptoms or risk factors identified. Fall Risk None identified. Assessment: 22:57 General: Appears in no apparent distress. comfortable, Behavior is calm, cooperative, jj7 appropriate for age. Pain: Denies pain. Neuro: No deficits noted. Cardiovascular: Parent/caregiver reports patient has had shakiness. Vital Signs: 22:34 BP 153 / 96; Pulse 77; Resp 18; Temp 98.7; Pulse Ox 100% on R/A; Weight 127.01 kg; tw5 Height 5 ft. 7 in. (170.18 cm); Pain 0/10; 23:06 BP 144 / 84; Pulse 74; Resp 18; Pulse Ox 100% ; jj7 03/03 00:02 BP 144 / 75; Pulse 70; Resp 18; Pulse Ox 100% ; Pain 0/10; jj7 01:00 BP 141 / 85; Pulse 70; Resp 17; Pulse Ox 100% ; Pain 0/10; jj7 02:10 BP 142 / 85; Pulse 73; Resp 17; Pulse Ox 100% ; jj7 02:49 BP 139 / 73; Pulse 80; Resp 17; Pulse Ox 100% ; Pain 0/10; jj7 03/02 22:34 Body Mass Index 43.85 (127.01 kg, 170.18 cm) tw5 ED Course: 03/02 22:24 Patient arrived in ED. mr 22:25 Linda Ochoa is Private Physician. mr 22:37 Triage completed. tw5 22:37 Arm band placed on. tw5 22:41 Matthew Restrepo PA is PHCP. cp 22:41 Zhen Teixeira MD is Attending Physician. cp 22:45 Arslan Preciado RN is Primary Nurse. jj7 22:57 Patient has correct armband on for positive identification. Placed in gown. Bed in low jj7 position. Call light in reach. Side rails up X2. Adult w/ patient. 22:57 No provider procedures requiring assistance completed. jj7 23:39 XRAY Chest (1 view) In Process Unspecified. EDMS 03/03 00:00 CT Head Brain wo Cont In Process Unspecified. EDMS 00:01 Basic Metabolic Panel Sent. jj7 00:01 CBC with Diff Sent. jj7 00:01 LFT's Sent. jj7 00:01 Magnesium Sent. jj7 00:01 Troponin HS Sent. jj7 00:36 Inserted saline lock: 22 gauge in left antecubital area, using aseptic technique. Blood jj7 collected. 00:45 Basic Metabolic Panel Sent. aa9 00:45 CBC with Diff Sent. aa9 00:45 Troponin HS Sent. aa9 00:46 LFT's Sent. aa9 00:46 Magnesium Sent. aa9 02:49 IV discontinued, intact, bleeding controlled, No redness/swelling at site. jj7 Administered Medications: 01:42 Drug: NS 0.9% 500 ml Route: IV; Rate: bolus; Site: left antecubital; jj7 02:34 Follow up: IV Status: Completed infusion jj7 01:42 Drug: Potassium Effervescent Tablet 50 mEq Route: PO; jj7 02:50 Follow up: Response: No adverse reaction jj7 Medication: 03/02 22:57 VIS not applicable for this client. j7 Outcome: 03/03 02:27 Discharge ordered by . slim 02:49 Discharged to home ambulatory, with significant other. jj7 02:49 Condition: improved 02:49 Discharge instructions given to patient, family, Instructed on discharge instructions, Demonstrated understanding of instructions. 03:29 Patient left the ED. j7 Signatures: Dispatcher [employer] [facility] Daniel Nanda Matthew Waterman PA PA cp Wood, Tiffany tw5 Herminia Khan RN RN aaArslan Valera RN RN jj7 Corrections: (The following items were deleted from the chart) 03/02 22:38 22:37 Allergies: No Known Allergies; tw tw
[2022-03-03 03:34] VITALS: TEMP 98.7; O2SAT 100
[2022-03-03 03:40] VITALS: BP 139/73
--- NOTE | 2022-03-03 11:31 | RAD REPORT ---
EXAM DESCRIPTION: RAD - Chest Single View - 03/02/2022 11:37 pm CLINICAL HISTORY: The patient is 46 years old and is Female; dizziness TECHNIQUE: Frontal view of the chest. COMPARISON: No relevant prior studies available. FINDINGS: Lungs: Mildly prominent interstitial and vascular markings. No consolidation. Pleural space: Unremarkable. No pneumothorax. Heart: Unremarkable. Mediastinum: Unremarkable. Bones/joints: Unremarkable. IMPRESSION: Mildly prominent interstitial and vascular markings. No consolidation. Electronically signed by: Castillo Granger MD 03/02/2022 11:58 PM TOLL RELIEF OPERATOR Due to temporary technical issues with the PACS/Fluency reporting system, reports are being signed by the in house radiologists without review as a courtesy to insure prompt reporting. The interpreting radiologist is fully responsible for the content of the report.
--- NOTE | 2022-03-03 11:46 | RAD REPORT ---
EXAM DESCRIPTION: CT - Head Brain Wo Cont - 03/03/2022 6:54 am HISTORY: dizziness COMPARISON: CT Head/Brain Without Contrast 01/31/2022 TECHNIQUE: Head/brain axial images acquired without contrast. Coronal and sagittal reformats created . Exam performed according to departmental dose-optimization program which includes automated exposur e control, adjustment of mA and/or kV according to patient size, and/or use of iterative reconstructi on technique. FINDINGS: No midline shift, mass effect, intracranial hemorrhage, or hydrocephalus. Brain parenchyma unremarkable. Partial Empty Sella (likely normal variant). Paranasal sinuses clear. Left frontal sinus not developed (normal variant). Mastoid air cells clear. No skull fracture. Metopic suture (normal variant). IMPRESSION: Unremarkable CT head/brain without contrast. Electronically signed by: Nico Thorpe MD 03/03/2022 12:23 AM CUSTOM FRAME ASSEMBLER Due to temporary technical issues with the PACS/Fluency reporting system, reports are being signed by the in house radiologists without review as a courtesy to insure prompt reporting. The interpreting radiologist is fully responsible for the content of the report.
--- NOTE | 2022-03-04 16:28 | EKG ---
Test Date: 2022-03-02 Test Time: 23:22:56 Catalyst Operator Chief: RV MEASUREMENT RESULTS: Intervals: Rate: 70 WA: 156 QRSD: 70 QT: 382 QTc: [address]: P: 57 WA: 156 QRS: 82 T: 26 INTERPRETIVE STATEMENTS: Normal sinus rhythm Low voltage QRS Nonspecific ST and T wave abnormality Abnormal ECG Compared to ECG 01/31/2022 20:09:38 No significant changes Electronically Signed On 03-04-22 16:23:20 SUPERVISOR REWORK by Bridger Russo
== END 2022-03-03 03:29 | disposition home or self-care (01) ==
LOC: ER 22:22
DX: I11.9 Hypertensive heart disease without heart failure (principal); E87.6 Hypokalemia; R51.9 Headache, unspecified; I10 Essential (primary) hypertension; Z88.0 Allergy status to penicillin
CPT/HCPCS: 93005; 85025; 80048; 36415; 83735; 80076; 84484; 70450; 71045; 96360; 99284; J7040